=== PATIENT | female | born 1930 | race African-American/Black ===

== ENCOUNTER → 2016-03-28 | Outpatient (CLI) | payer OTHER ==
[~2016-03-28] MED LIST: AMLO-110 PO; AMOX875T PO; CEPH500C PO; CEPH500C2 PO; CFP2IV IV; CIPR1TAB11 PO; DRGTP50 TOP; FERR1TAB13 PO; FLUC100T4 PO; GLC5 PO; GLIP10TA3 PO; INSDGIPEN SC; INSUINJ4 SQ; LEVO-366 PO; LEVO1TAB33 PO; LEVO1TAB34 PO; LISI40TA PO; METO25TA56 PO; METO5TAB25 PO; PRAV20TA PO; PRVC/40 PO
[2016-03-28 14:23] LABS: ESTIMATED AVERAGE GLUCOSE 174 mg/dl; HA1C FLAG Normal (Normal)
== END | disposition home or self-care (01) ==
LOC: C.LABBC 11:14
PROVIDERS: ATTEND Internal Medicine
DX: N18.9 Chronic kidney disease, unspecified (principal); E11.22 Type 2 diabetes mellitus with diabetic chronic kidney disease

== ENCOUNTER → 2016-03-30 | Outpatient (CLI) | payer OTHER ==
[~2016-03-30] MED LIST changes: -CIPR1TAB11 PO; -DRGTP50 TOP
[2016-03-30 16:37] LABS: FERRITIN 112.8 ng/ml (8.0-388.0)
== END | disposition home or self-care (01) ==
LOC: C.LAB1850 14:43
PROVIDERS: ATTEND Internal Medicine
DX: D64.9 Anemia, unspecified (principal)

== ENCOUNTER → 2016-07-03 | Outpatient (CLI) | payer OTHER ==
[~2016-07-03] MED LIST changes: -AMOX875T PO; -CFP2IV IV; -FLUC100T4 PO; -LEVO1TAB34 PO
[2016-07-03 12:19] LABS: BASO % 0.2 %; BASO ABS # 0.02 K/uL (0-0.2); COMPLETE YES; EOS % 1.7 %; HEMATOCRIT 36.8 % (37-47); IG% 0.2 %; LYMPH % 11.6 %; LYMPH ABS # 1.04 K/uL (1.2-3.4); MEAN CELL VOLUME 87.4 fL (80-100); MEAN CORPUSCULAR HEMOGLOBIN 29.2 pg (25-34); MEAN CORPUSCULAR HGB CONC 33.4 g/dl (32-36); MEAN PLATELET VOLUME 10.9 fL (7.4-10.4); MONO % 5.9 %; NEUT % 80.4 %; PLATELET COUNT 217 K/uL (130-400); RED BLOOD COUNT 4.21 M/uL (4.2-5.4); WHITE BLOOD COUNT 8.96 K/uL (4.8-10.8)
[2016-07-03 12:32] LABS: BLOOD UREA NITROGEN 36 mg/dl (7-18); BUN/CREATININE RATIO 25.7 (10-20); CALCIUM 9.3 mg/dl (8.5-10.1); CARBON DIOXIDE 27 mmol/L (21-32); CHLORIDE 102 mmol/L (98-107); GLUCOSE 184 mg/dl (70-99); POTASSIUM 4.3 mmol/L (3.5-5.1); SODIUM 138 mmol/L (136-145)
[2016-07-03 13:27] LABS: ESTIMATED AVERAGE GLUCOSE 220 mg/dl; HA1C FLAG Normal (Normal)
--- NOTE | 2016-07-10 10:29 | CODING QUERY MEDICAL NECESSITY ---
CQSUPPORTING DIAGNOSIS NEEDED A supporting diagnosis is required for the test/procedure performed on this patient in order for us to be reimbursed by the patient's insurance. Please provide a supporting diagnosis for the following test/procedure listed below next to the test name along with your signature. *If there is no additional diagnosis for this patient that would support the following test/procedure please document that below next to the test/procedure. Test(s)/Procedure(s) that require a supporting diagnosis: DOS 07/03/16 GLYCATED HEMOGLOBIN ORDERED BY BONG KUMAR Provider Signature: Date: Thank you Taylor Lezama Health Information Management Once completed, please kindly fax back to [phone] For questions please call [phone]
== END | disposition home or self-care (01) ==
LOC: C.LAB1850 11:13
PROVIDERS: ATTEND Physician Assistant
DX: N18.9 Chronic kidney disease, unspecified (principal); R73.09 Other abnormal glucose; S81.801A Unspecified open wound, right lower leg, initial encounter; X58.XXXA Exposure to other specified factors, initial encounter; L97.919 Non-pressure chronic ulcer of unspecified part of right lower leg with unspecified severity; L03.90 Cellulitis, unspecified; B95.2 Enterococcus as the cause of diseases classified elsewhere; B37.9 Candidiasis, unspecified

== ENCOUNTER → 2016-10-02 | Outpatient (CLI) | payer OTHER ==
[2016-10-02 12:21] LABS: BASO % 0.3 %; BASO ABS # 0.02 K/uL (0-0.2); COMPLETE YES; EOS % 1.6 %; HEMATOCRIT 38.8 % (37-47); IG% 0.2 %; LYMPH ABS # 1.19 K/uL (1.2-3.4); MEAN CELL VOLUME 91.3 fL (80-100); MEAN CORPUSCULAR HEMOGLOBIN 30.6 pg (25-34); MEAN CORPUSCULAR HGB CONC 33.5 g/dl (32-36); MEAN PLATELET VOLUME 10.5 fL (7.4-10.4); MONO % 7.2 %; NEUT % 71.7 %; PLATELET COUNT 241 K/uL (130-400); RED BLOOD COUNT 4.25 M/uL (4.2-5.4); WHITE BLOOD COUNT 6.27 K/uL (4.8-10.8)
[2016-10-02 12:44] LABS: ESTIMATED AVERAGE GLUCOSE 157 mg/dl; HA1C FLAG Normal (Normal)
[2016-10-02 12:59] LABS: BLOOD UREA NITROGEN 42 mg/dl (7-18); CALCIUM 9.8 mg/dl (8.5-10.1); CARBON DIOXIDE 28 mmol/L (21-32); CHLORIDE 105 mmol/L (98-107); GLUCOSE 107 mg/dl (70-99); POTASSIUM 4.3 mmol/L (3.5-5.1); SODIUM 140 mmol/L (136-145)
[2016-10-02 13:10] LABS: CHOLESTEROL 244 mg/dl (0-200); CHOLESTEROL/HDL RATIO 2.2; HDL CHOLESTEROL 109 mg/dl; LDL CHOLESTEROL CALCULATED 123 mg/dl; TRIGLYCERIDES 62 mg/dl (0-150); VERY LOW DENSITY LIPOPROT CALC 12 mg/dl
== END | disposition home or self-care (01) ==
LOC: C.LAB1850 10:19
PROVIDERS: ATTEND Physician Assistant
DX: I12.9 Hypertensive chronic kidney disease with stage 1 through stage 4 chronic kidney disease, or unspecified chronic kidney disease (principal); N18.9 Chronic kidney disease, unspecified; E11.9 Type 2 diabetes mellitus without complications

== ENCOUNTER 2016-11-21 13:34 | Emergency (ER) | payer OTHER ==
[~2016-11-21 13:34] MED LIST changes: -CEPH500C PO; -CEPH500C2 PO; -GLIP10TA3 PO; -INSDGIPEN SC; -LEVO-366 PO; -LEVO1TAB33 PO; -PRVC/40 PO
[2016-11-21 13:44] VITALS: TEMP 36.7; Ht 157.5 cm
[2016-11-21] MEDS ORDERED: SODIUM CHLORIDE 0.9% 1000ML 500 ML IV STA (14:21)
--- NOTE | 2016-11-21 14:27 | EMERGENCY ROOM VISIT NOTE ---
History Report prepared by Pardeep: Henrique Hinojosa Under the Supervision of: Dr. Amarjit Horton M.D. First contact with patient: 14:15 Chief Complaint: HYPERGLYCEMIA Stated Complaint: KNUTSON, DIZZY, N, HIGH BLOOD SUGAR, CONSTIPATION Nursing Triage Summary: "My sugar went up." per pt. 365 at home per daughter. BSG in triage 218 Denies complaints of headache, dizziness. Pt states "my bowels haven't moved like they should." History of Present Illness The patient is an 86 year old female diabetic who presents to the Emergency Room with complaints of persistent hyperglycemia that started a few days ago. Per the patient's daughter, the patient's blood sugar was the highest this morning, at 365. In triage, the patient's blood sugar was 218. The patient denies any recent changes in diabetes medication, and takes Insulin and Glipizide daily. She also denies any changes in her diet recently. The patient adds that starting yesterday, she has had a decreased urinary frequency, and did not have to get up at all last night to urinate, which is very unusual for her. She denies any changes in the color of her urine. She notes that she has had a decreased appetite with constipation the past few days. The patient was started on Pravastatin 3 weeks ago. Per the patient's daughter, the patient has had a right leg ulcer for quite a while which has been improving, and goes to wound clinic for it. She was supposed to have an appointment there today, but came here instead. She denies any fevers, cough, or new chills. She is not on any antibiotics currently. Source of History: patient, family (daughter) Onset: A few days ago Position: other (global - hyperglycemia) Symptom Intensity: as high as 365 Timing: other (persistent) Associated Symptoms: + urinary symptoms (decreased urinary frequency, denies change in color), No fevers, No chills (any new), No cough Note: Associated symptoms: Decreased appetite. Constipation. Review of Systems See HPI for pertinent positives & negatives. A total of 10 systems reviewed and were otherwise negative. Past Medical & Surgical Medical Problems: (1) Acute on chronic renal failure (2) Cellulitis (3) Diabetes mellitus with hyperglycemia, with long-term current use of insulin (4) Wound of right leg Family History Family history omitted secondary to patient's advanced age. Social History Smoking Status: Never Smoker Drug Use: none Marital Status: Occupation Status: retired Current/Historical Medications Scheduled Amlodipine (Norvasc), 5 MG PO BID Glipizide (Glucotrol), 10 MG PO BID Insulin Glargine (Lantus Solostar), 15 SC HS Lisinopril (Zestril), 40 MG PO DAILY Metolazone (Zaroxolyn), 5 MG PO Q2D Metoprolol Tartrate (Lopressor) (Lopressor), 25 MG PO BID Pravastatin Sod (Pravastatin Sodium), 40 MG PO DAILY Allergies Coded Allergies: No Known Allergies (Unverified , 11/21/16) Physical Exam Vital Signs Date Time Temp Pulse Resp B/P (MAP) Pulse Ox O2 Delivery O2 Flow Rate FiO2 11/21/16 15:45 68 16 153/82 99 Room Air 11/21/16 13:44 36.7 60 18 161/79 95 Room Air Physical Exam GENERAL: Patient is in no acute distress. HEENT: No acute trauma, normocephalic atraumatic, mucous membranes moist, no nasal congestion, no scleral icterus. NECK: No stridor, no adenopathy, no meningismus, trachea is midline. LUNGS: Clear to auscultation bilaterally, no wheeze, no rhonchi, breath sounds equal. HEART: Without murmurs gallops or rubs, regular rate and rhythm. ABDOMEN: Soft, nontender, bowel sounds positive, no hernias, no peritonitis. EXTREMITIES: No cyanosis or edema, full range of motion of all the joints without pain or difficulty, no signs for acute trauma. There is a healing ulcer to the distal lateral right leg that has been bandaged. No surrounding cellulitis. NEUROLOGIC: Oriented x 3, no acute motor or sensory deficits, no focal weakness. SKIN: No rash, no jaundice, no diaphoresis. Medical Decision & Procedures ER Provider Diagnostic Interpretation: X-ray results as stated below per interpretation by me and the radiologist: CHEST ONE VIEW PORTABLE HISTORY: 86 years-old Female EVALUATE ALTERED MENTAL STATUS/WEAKNESS COMPARISON: Chest radiographs 11/05/2015 TECHNIQUE: Portable upright AP view of the chest FINDINGS: Cardiac silhouette is within normal limits. There is atherosclerosis of the aorta. There is no pneumothorax, pleural effusion or focal airspace consolidation. There is no overt pulmonary edema. The bones are mildly demineralized. Subcortical cystic changes and advanced degenerative changes are noted within the shoulders. IMPRESSION: No acute cardiopulmonary process. The above report was generated using voice recognition software. It may contain grammatical, syntax or spelling errors. Electronically signed by: Shree Villarreal M.D. 11/21/2016 2:53 PM Dictated Date/Time: 11/21/2016 2:52 PM Laboratory Results 11/21/16 14:35 Red Blood Count 4.47, Mean Corpuscular Volume 90.8, Mean Corpuscular Hemoglobin 30.4, Mean Corpuscular Hemoglobin Concent 33.5, Mean Platelet Volume 9.7, Neutrophils (%) (Auto) 80.1, Lymphocytes (%) (Auto) 13.0, Monocytes (%) (Auto) 6.0, Eosinophils (%) (Auto) 0.5, Basophils (%) (Auto) 0.3, Neutrophils # (Auto) 6.04, Lymphocytes # (Auto) 0.98, Monocytes # (Auto) 0.45, Eosinophils # (Auto) 0.04, Basophils # (Auto) 0.02 11/21/16 14:35 Test 11/21/16 13:47 11/21/16 14:35 11/21/16 16:00 Bedside Glucose 218 mg/dl (70-90) White Blood Count 7.54 K/uL (4.8-10.8) Red Blood Count 4.47 M/uL (4.2-5.4) Hemoglobin 13.6 g/dL (12.0-16.0) Hematocrit 40.6 % (37-47) Mean Corpuscular Volume 90.8 fL (80-100) Mean Corpuscular Hemoglobin 30.4 pg (25-34) Mean Corpuscular Hemoglobin Concent 33.5 g/dl (32-36) Platelet Count 267 K/uL (130-400) Mean Platelet Volume 9.7 fL (7.4-10.4) Neutrophils (%) (Auto) 80.1 % Lymphocytes (%) (Auto) 13.0 % Monocytes (%) (Auto) 6.0 % Eosinophils (%) (Auto) 0.5 % Basophils (%) (Auto) 0.3 % Neutrophils # (Auto) 6.04 K/uL (1.4-6.5) Lymphocytes # (Auto) 0.98 K/uL (1.2-3.4) Monocytes # (Auto) 0.45 K/uL (0.11-0.59) Eosinophils # (Auto) 0.04 K/uL (0-0.5) Basophils # (Auto) 0.02 K/uL (0-0.2) RDW Standard Deviation 42.8 fL (36.4-46.3) RDW Coefficient of Variation 12.7 % (11.5-14.5) Immature Granulocyte % (Auto) 0.1 % Immature Granulocyte # (Auto) 0.01 K/uL (0.00-0.02) Anion Gap 7.0 mmol/L (3-11) Estimated GFR () 33.5 Estimated GFR (Non- 28.9 BUN/Creatinine Ratio 23.6 (10-20) Calcium Level 10.1 mg/dl (8.5-10.1) Total Bilirubin 0.4 mg/dl (0.2-1) Aspartate Amino Transf (AST/SGOT) 15 U/L (15-37) Alanine Aminotransferase (ALT/SGPT) 16 U/L (12-78) Alkaline Phosphatase 106 U/L (45-117) Total Protein 8.2 gm/dl (6.4-8.2) Albumin 3.8 gm/dl (3.4-5.0) Globulin 4.4 gm/dl (2.5-4.0) Albumin/Globulin Ratio 0.9 (0.9-2) Urine Color YELLOW Urine Appearance CLEAR (CLEAR) Urine pH 5.0 (4.5-7.5) Urine Specific Sullivan 1.015 (1.000-1.030) Urine Protein NEG (NEG) Urine Glucose (UA) NEG (NEG) Urine Ketones NEG (NEG) Urine Occult Blood NEG (NEG) Urine Nitrite NEG (NEG) Urine Bilirubin NEG (NEG) Urine Urobilinogen NEG (NEG) Urine Leukocyte Esterase TRACE (NEG) Urine WBC (Auto) 1-5 /hpf (0-5) Urine RBC (Auto) 0-4 /hpf (0-4) Urine Hyaline Casts (Auto) 1-5 /lpf (0-5) Urine Epithelial Cells (Auto) 5-10 /lpf (0-5) Urine Bacteria (Auto) NEG (NEG) Laboratory results reviewed by me. Medications Administered Medications (Trade) Dose Ordered Sig/Rita Route Start Time Stop Time Status Last Admin Dose Admin Sodium Chloride 500 ml @ 999 mls/hr Q31M STAT IV 11/21/16 14:21 11/21/16 14:51 DC 11/21/16 14:44 999 MLS/HR Sodium Chloride 500 ml @ 999 mls/hr Q31M STAT IV 11/21/16 15:30 11/21/16 16:00 DC 11/21/16 15:44 999 MLS/HR ED Course 1420: The patient was evaluated in room C5. A complete history and physical exam was performed. 1421: Ordered NSS 500 ml @ 999 mls/hr IV. 1633: Reevaluated the patient and she is resting comfortably. Discussed results and discharge instructions: she verbalized understanding and agreement. The patient is ready for discharge. Medical Decision Differential diagnosis includes but is not limited to dehydration, poor diet, UTI, cellulitis, pneumonia, viral illness. There is no leukocytosis or concerning anemia. No significant electrolyte abnormality or kidney failure-creatinine is baseline, glucose only mildly elevated and consistent with her history of diabetes. Urinalysis does not show infection. Chest x-ray does not show pneumonia. On exam, the patient did not seem toxic, she was not febrile. She has an ulcer to her right lateral leg which is slowly healing. No overt cellulitis seen. A wound culture was done at the request of the family. Patient received IV saline for hydration. She has done well, I don't find any source for infection. The patient was given information on following a diabetic diet. She will be discharged to follow with the wound center and with her family doctor's office. If worsening, she can return. Medication Reconcilliation Current Medication List: was personally reviewed by me Blood Pressure Screening Patient's blood pressure: Elevated blood pressure Blood pressure disposition: Elevated BP felt to be situational Impression Primary Impression: Hyperglycemia Scribe Attestation The scribe's documentation has been prepared under my direction and personally reviewed by me in its entirety. I confirm that the note above accurately reflects all work, treatment, procedures, and medical decision making performed by me. Departure Information Dispostion Home / Self-Care Referrals No Doctor, Assigned (PCP) Leal, Brant H.,M.D. Forms HOME CARE DOCUMENTATION FORM, IMPORTANT VISIT INFORMATION Patient Instructions My [facility] Additional Instructions stay well hydrated follow the information about diabetes and proper diets see the wound center when able see heidy abbott this week for a recheck of the sugar return for fever, worsening redness, or worsening symptoms you can call here in 3 days for the wound culture results---[phone]
[2016-11-21] MEDS ORDERED: PRVC/40 PO (14:35)
[2016-11-21] MEDS ORDERED: GLIP10TA3 PO (14:38)
[2016-11-21] MEDS ORDERED: INSDGIPEN SC (14:39)
[2016-11-21 14:51] LABS: BASO % 0.3 %; BASO ABS # 0.02 K/uL (0-0.2); COMPLETE YES; EOS % 0.5 %; HEMATOCRIT 40.6 % (37-47); IG% 0.1 %; LYMPH ABS # 0.98 K/uL (1.2-3.4); MEAN CELL VOLUME 90.8 fL (80-100); MEAN CORPUSCULAR HEMOGLOBIN 30.4 pg (25-34); MEAN CORPUSCULAR HGB CONC 33.5 g/dl (32-36); MEAN PLATELET VOLUME 9.7 fL (7.4-10.4); NEUT % 80.1 %; PLATELET COUNT 267 K/uL (130-400); RED BLOOD COUNT 4.47 M/uL (4.2-5.4); WHITE BLOOD COUNT 7.54 K/uL (4.8-10.8)
--- NOTE | 2016-11-21 14:54 | DIAGNOSTIC IMAGING REPORT ---
CHEST ONE VIEW PORTABLE HISTORY: 86 years-old Female EVALUATE ALTERED MENTAL STATUS/WEAKNESS COMPARISON: Chest radiographs 11/05/2015 TECHNIQUE: Portable upright AP view of the chest FINDINGS: Cardiac silhouette is within normal limits. There is atherosclerosis of the aorta. There is no pneumothorax, pleural effusion or focal airspace consolidation. There is no overt pulmonary edema. The bones are mildly demineralized. Subcortical cystic changes and advanced degenerative changes are noted within the shoulders. IMPRESSION: No acute cardiopulmonary process. The above report was generated using voice recognition software. It may contain grammatical, syntax or spelling errors. Electronically signed by: Shree Villarreal M.D. 11/21/2016 2:53 PM Dictated Date/Time: 11/21/2016 2:52 PM
[2016-11-21 15:15] LABS: ALT/SGPT 16 U/L (12-78); BLOOD UREA NITROGEN 38 mg/dl (7-18); BUN/CREATININE RATIO 23.6 (10-20); CALCIUM 10.1 mg/dl (8.5-10.1); CARBON DIOXIDE 29 mmol/L (21-32); CHLORIDE 99 mmol/L (98-107); GLUCOSE 242 mg/dl (70-99); POTASSIUM 4.3 mmol/L (3.5-5.1); SODIUM 135 mmol/L (136-145)
[2016-11-21 15:18] LABS: ALB/GLOB RATIO 0.9 (0.9-2); ALKALINE PHOSPHATASE 106 U/L (45-117); AST/SGOT 15 U/L (15-37)
[2016-11-21] MEDS ORDERED: SODIUM CHLORIDE 0.9% 500ML 500 ML IV STA (15:30)
[2016-11-21 16:05] LABS: MANUAL MICROSCOPIC REQUIRED? NO; REVIEW REQ? NO; URINE APPEARANCE CLEAR (CLEAR); URINE BILIRUBIN NEG (NEG); URINE COLOR YELLOW; URINE NITRITE NEG (NEG); URINE SPECIFIC GRAVITY 1.015 (1.000-1.030); UROBILINOGEN NEG (NEG); ZZUR CULT IF INDIC CLEAN CATCH NO
[2016-11-21 17:10] VITALS: BP 156/82; PULSE 73; O2SAT 98
[2016-11-27] MEDS ORDERED: CEPH500C2 PO (08:58)
[2016-11-27] MEDS ORDERED: LEVO1TAB33 PO (08:58)
[2016-12-06] MEDS ORDERED: LEVO-366 PO (07:49)
[2016-12-06] MEDS ORDERED: CEPH500C PO (07:49)
== END 2016-11-21 17:10 | disposition home or self-care (01) ==
LOC: C.EDB 13:37 → C.EDC 17:10
DX: E11.65 Type 2 diabetes mellitus with hyperglycemia (principal); N18.9 Chronic kidney disease, unspecified; Z79.4 Long term (current) use of insulin; Z79.899 Other long term (current) drug therapy

== ENCOUNTER → 2017-05-17 | Outpatient (CLI) | payer OTHER ==
[~2017-05-17] MED LIST changes: +CIPR1TAB11 PO; -FERR1TAB13 PO; +FLUC100T4 PO; -GLC5 PO; +GLIP10TA3 PO; +INSDGIPEN SC; -INSUINJ4 SQ; -PRAV20TA PO; +PRVC/40 PO
[2017-05-17 17:43] LABS: BASO % 0.4 %; BASO ABS # 0.03 K/uL (0-0.2); EOS % 2.8 %; EOS ABS # 0.19 K/uL (0-0.5); HEMATOCRIT 35.9 % (37-47); HEMOGLOBIN 12.3 g/dL (12.0-16.0); IG# 0.02 K/uL (0.00-0.02); LYMPH % 18.5 %; LYMPH ABS # 1.25 K/uL (1.2-3.4); MEAN CELL VOLUME 89.3 fL (80-100); MEAN CORPUSCULAR HEMOGLOBIN 30.6 pg (25-34); MEAN CORPUSCULAR HGB CONC 34.3 g/dl (32-36); MEAN PLATELET VOLUME 9.8 fL (7.4-10.4); MONO % 8.3 %; MONO ABS # 0.56 K/uL (0.11-0.59); NEUT % 69.7 %; NEUT ABS # 4.71 K/uL (1.4-6.5); PLATELET COUNT 222 K/uL (130-400); RED CELL DISTRIBUTION WIDTH CV 13.2 % (11.5-14.5); RED CELL DISTRIBUTION WIDTH SD 43.1 fL (36.4-46.3); WHITE BLOOD COUNT 6.76 K/uL (4.8-10.8)
[2017-05-17 18:08] LABS: BLOOD UREA NITROGEN 36 mg/dl (7-18); CARBON DIOXIDE 27 mmol/L (21-32); CREATININE 1.37 mg/dl (0.60-1.20); GLUCOSE 187 mg/dl (70-99); SODIUM 139 mmol/L (136-145)
[2017-05-18 07:17] LABS: HEMOGLOBIN A1C 6.8 % (4.5-5.6)
== END | disposition home or self-care (01) ==
LOC: C.LAB1850 17:16
PROVIDERS: ATTEND Internal Medicine
DX: M75.00 Adhesive capsulitis of unspecified shoulder (principal); I12.9 Hypertensive chronic kidney disease with stage 1 through stage 4 chronic kidney disease, or unspecified chronic kidney disease; N18.9 Chronic kidney disease, unspecified; E11.22 Type 2 diabetes mellitus with diabetic chronic kidney disease

== ENCOUNTER 2018-08-05 12:07 | Inpatient (IN) ==
[2018-08-05 16:29] LABS: Alanine Aminotransferase 14 U/L (12-78); Albumin Level 3.2 gm/dl (3.4-5.0); Aspartate Aminotransferase 13 U/L (15-37); BUN Creatinine Ratio 30.5 (10-20); Blood Urea Nitrogen 45 mg/dl (7-18); Calcium 9.7 mg/dl (8.5-10.1); Carbon Dioxide 24 mmol/L (21-32); Chloride 109 mmol/L (98-107); Est GFR (African American) 36.9; Est GFR (Non-African American) 31.8; Glucose 79 mg/dl (70-99); Potassium 4.4 mmol/L (3.5-5.1); Sodium 141 mmol/L (136-145)
[2018-08-05] MEDS ORDERED: IMIPENEM/CILASTATIN CONSULT ACTIVE PRN (16:31)
[2018-08-05 16:32] LABS: Albumin Globulin Ratio 0.8 (0.9-2); Alkaline Phosphatase 94 U/L (45-117); Bilirubin,Total 0.4 mg/dl (0.2-1); Globulin 4.2 gm/dl (2.5-4.0); Total Protein 7.4 gm/dl (6.4-8.2)
[2018-08-05] MEDS ORDERED: PATIENT'S HEIGHT AND/OR WEIGHT NEEDED SCH (16:45)
[2018-08-05] MEDS ORDERED: ACETAMINOPHEN 325 MG TAB PO PRN (16:55)
[2018-08-05] MEDS ORDERED: IMIPENEM/CILASTATIN SODIUM 500 MG in DEXTROSE 5% 100 ML IV ONE (17:00)
[2018-08-05] MEDS ORDERED: CONSULT PHARMACY STA (17:06)
--- NOTE | 2018-08-05 17:43 | XRay Report ---
XR foot RT min 3V routine CLINICAL HISTORY: 88 years-old Female presenting with r/o abscess vs cellulitis right great toe. TECHNIQUE: Frontal, oblique, and lateral views of the right foot were obtained. COMPARISON: Plain radiographs and MR of the right foot from 06/25/2018 and 07/02/2018, respectively. FINDINGS: Diffuse osteopenia. Irregularity of the medial aspect of the first toe at the level of the tuft sugge stive of an ulceration. Trace subjacent lucency of the medial cortex of the base of the distal phalan x of the first toe though this is only minimally progressed from the prior exam. The interphalangeal joint of the first toe appears preserved. No acute fracture or malalignment. No advanced degenerative change. Soft tissue swelling along the medial aspect of the first toe. Atherosclerosis. IMPRESSION: Trace osseous or erosion subjacent to a suspected ulceration along the medial aspect of the first toe at the level of the base of the distal phalanx. Though this is minimally progressed since the prior exam, this does raise concern for early osteomyelitis. No rick evidence of septic arthritis of the i nterphalangeal joint. Electronically signed by: Claudio Wallace M.D. 08/05/2018 5:42 PM
[2018-08-05 17:53] LABS: Prothrombin Time 10.6 Seconds (9.0-12.0)
[2018-08-05 18:15] LABS: Hematocrit (blood only) 33.4 % (37-47); Hemoglobin 11.7 g/dL (12.0-16.0); Mean Corpuscular Volume 88.8 fL (80-100); Mean Platelet Volume 10.2 fL (7.4-10.4); Platelet Count 285 K/uL (130-400); RDW Coefficient of Variation 13.2 % (11.5-14.5); RDW Standard Deviation 43.2 fL (36.4-46.3); Red Blood Count 3.76 M/uL (4.2-5.4); White Blood Count 8.95 K/uL (4.8-10.8)
[2018-08-05] MEDS ORDERED: Nursing to Pharmacy Communication ONE (18:20)
--- NOTE | 2018-08-05 18:28 | History & Physical Report ---
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 Elliott arrives here from the wound clinic due to worsening diabetic foot wound. She has been receiving ongoing treatment and had a dose of Dalvance over the weekend. Imaging last week showed osteoitis. Patient denies aches, chills, or fevers. She has no other complaints other than foot pain. Pmhx: hypertension, CHF, DMII, Social: non drinker, never smoker, Family hx: father was diabetic Primary Care Provider: Brant Leal MD Allergies Allergy/AdvReac Type Severity Reaction Status Date / Time No Known Allergies Allergy Verified 08/05/18 13:14 Home Medications Home Medications Medication Instructions Recorded Confirmed Type amlodipine 5 mg PO BID 08/05/18 08/05/18 History glipizide 10 mg PO BID 08/05/18 08/05/18 History insulin glargine [Lantus Solostar 15 units SUBCUT PM 08/05/18 08/05/18 History U-100 Insulin] lisinopril 40 mg PO DAILY 08/05/18 08/05/18 History metolazone 5 mg PO Q OTHER DAY 08/05/18 08/05/18 History metoprolol tartrate 25 mg PO BID 08/05/18 08/05/18 History pravastatin 40 mg PO DAILY 08/05/18 08/05/18 History Past Med/Surg History Social History Preferred Language: Spanish Communication Ability: Effective Visual Impairment: No Limitations Hearing Ability: Normal Subscription Crew Leader Required: No Beliefs That Will Affect Care: Confucianist Confucianist Beliefs: Baptist marital status: / Current Living Situation: Alone current occupational status: retired Feels Safe at Home: Yes Safety Concerns: Feels Safe At This Time Smoking Status: Never smoker Hx Alcohol Use: No Hx Substance Use: No Review of Systems Review of Systems: All systems reviewed & are unremarkable except as noted in HPI & below Physical Exam Physical Exam: General: no distress Eyes: normal inspection, PERLL Respiratory: chest non tender, clear to auscultation, normal breath sounds, no respiratory distress, no accessory muscle use Cardiac: regular rate and rhythm, no rub or gallop, no murmur, no edema, no jvd GI/: active bowel sounds, no abd pain or tenderness, soft, non distended Extremities: normal range of motion, normal strength, non tender Neuro/Psych: alert and oriented x 3, normal mood and affect Skin: normal color, dry, right toe boggy and dusky, right medial ulceration with eschar and slough, right gomez with area of slough/erythema (patient reports this is improvement). Results & Data Vital Signs (Past 12 Hours) Vital Signs Temp Pulse Resp BP Pulse Ox 08/05/18 16:10 149/83 H 08/05/18 15:13 36.6 C 80 18 174/76 H 98 08/05/18 13:35 36.4 C L 81 18 140/81 96 (1) 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
[2018-08-05] MEDS ORDERED: DEXTROSE 50% 50 ML SYRINGE IV PRN (18:30)
[2018-08-05] MEDS ORDERED: GLUCOSE 40% GEL 15 GM TUBE PO PRN (18:30)
[2018-08-05] MEDS ORDERED: GLUCOSE 10 TABS/TUBE PO PRN (18:30)
[2018-08-05] MEDS ORDERED: GLUCAGON FOR INJ 1 MG VIAL IM PRN (18:30)
[2018-08-05] MEDS: HYDROCODONE/ACETAMOPHEN 5/325MG TAB PO PRN (19:17)
[2018-08-05] MEDS: INSULIN ASPART 100 UNITS/ML 3 ML PEN SC SCH ×2 (19:26→21:24)
[2018-08-05] MEDS ORDERED: METOPROLOL TARTRATE 25 MG TAB PO SCH (21:00)
[2018-08-05] MEDS ORDERED: INSULIN GLARGINE SOLOSTAR 100 UNITS/ML 3 ML PEN SQ SCH (21:00)
[2018-08-05] MEDS: AMLODIPINE BESYLATE 5 MG TAB PO SCH (21:20)
[2018-08-05] MEDS: METOPROLOL TARTRATE 25 MG TAB PO SCH (21:20)
[2018-08-05] MEDS: HEPARIN SOD 5,000 UNIT/0.5 ML VIAL SQ SCH (21:23)
[2018-08-05] MEDS ORDERED: LACTATED RINGER'S 250 ML IV ONE (23:35)
--- NOTE | 2018-08-06 00:01 | Progress Note ---
Date of Service August 05, 2018 Received a page from the patient's nurse that her blood pressure was 75/45 and that she is asymptomatic. On brief chart review, patient was admitted for right foot toe ulcer. Hypertension and is on amlodipine and lisinopril, both doses given about 90 minutes ago.. Earlier blood pressures in the day/evening were hypertensive. Saw patient at bedside. She is awake, alert, very pleasantly conversational, and says that she is in no distress whatsoever. She does mention she has not had much to drink today. She also says she has no known history of heart failure, though a relative/friend at her bedside says she has had heart evaluations in the past. Exam: Afebrile, heart rate 73. Conversing easily. Clear lungs to auscultation. No peripheral edema. On recheck without any treatment, blood pressure went up to systolic mid 80's. Plan: - Will bolus with lactated Ringer's 250 mL. - Encouraged p.o. fluid intake. - Nursing to continue to monitor overnight. Shree Lanza, PGY2 Overnight call Results & Data Vital Signs (Past 12 Hours) Vital Signs Temp Pulse Resp BP BP Pulse Ox 08/05/18 23:19 37 C 73 16 75/45 L 96 08/05/18 16:10 149/83 H 08/05/18 15:13 36.6 C 80 18 174/76 H 98 08/05/18 13:35 36.4 C L 81 18 140/81 96
[2018-08-06] MEDS: IMIPENEM/CILASTATIN SODIUM 200 MG in DEXTROSE 5% 100 ML IV SCH ×2 (00:21→05:24)
[2018-08-06 06:03] LABS: Estimated Average Glucose 160 mg/dl; Hemoglobin A1C 7.2 % (4.5-5.6)
[2018-08-06 07:31] LABS: Hematocrit (blood only) 31.6 % (37-47); Mean Corpuscular Hgb Conc 34.8 g/dL (32-36); Mean Corpuscular Volume 88.8 fL (80-100); Mean Platelet Volume 9.4 fL (7.4-10.4); Platelet Count 277 K/uL (130-400); RDW Standard Deviation 42.3 fL (36.4-46.3); Red Blood Count 3.56 M/uL (4.2-5.4); White Blood Count 7.47 K/uL (4.8-10.8)
[2018-08-06] MEDS: CARBOHYDRATES FOR HYPOGLYCEMIA PO PRN (08:09)
[2018-08-06] MEDS: PRAVASTATIN SOD 40 MG TAB PO SCH (08:46)
[2018-08-06] MEDS: HEPARIN SOD 5,000 UNIT/0.5 ML VIAL SQ SCH ×2 (08:48→21:33)
[2018-08-06] MEDS: INSULIN ASPART 100 UNITS/ML 3 ML PEN SC SCH ×4 (08:49→21:32)
[2018-08-06] MEDS ORDERED: PRAVASTATIN SOD 40 MG TAB PO SCH (09:00)
[2018-08-06] MEDS ORDERED: metOLazone 5 MG TABLET PO SCH (09:00)
[2018-08-06] MEDS ORDERED: LISINOPRIL 40 MG TAB PO SCH (09:00)
[2018-08-06] MEDS ORDERED: AMLODIPINE BESYLATE 5 MG TAB PO SCH (09:00)
[2018-08-06] MEDS: AMLODIPINE BESYLATE 5 MG TAB PO SCH ×2 (09:12→21:29)
[2018-08-06] MEDS: LISINOPRIL 40 MG TAB PO SCH (09:12)
[2018-08-06] MEDS: METOPROLOL TARTRATE 25 MG TAB PO SCH ×2 (09:12→21:29)
--- NOTE | 2018-08-06 10:14 | Cardiology Consultation ---
Date of Consultation August 06, 2018 Assessment & Plan (1) Chronic ulcer of great toe of right foot: 2. Peripheral arterial disease 3. Type 2 DM 4. CKD Patient has a history of complex peripheral arterial disease and recurrent lower extremity ulcerations. Currently admitted with a worsening wound of her left great toe with associated infection and possible osteomyelitis. Previous lower extremity angiogram demonstrated bilateral SFA occlusion, distal runoff unclear. Recommend right lower extremity arterial duplex for further assessment. Supervising Physician Co-Signing Physician Notes Patient seen and examined. Agree with assessment and plan as outlined by physician printer assistant Nadia Richard. We previously saw patient at wound clinic for her persistent left great toe ulceration in the setting of severe PAD. She was admitted yesterday in the setting of worsening cellulitis. MRI today suggestive of osteomyelitis. Foot warm, capillary refill sluggish, DP/PT pulses nonpalpable. Minimal surrounding erythema and no drainage. LE arterial duplex reviewed. 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 Proximal SFA appears occluded potentially extending back to ostium. SFA reconstitutes in mid/distal SFA. 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 SAMUEL with severe disease but patent to foot with patent DPA. Appears to have complex SFA disease with single vessel runoff. Recommend angiogram at some point to further assess anatomy and revascularization options. Timing of angiogram pending ortho plans. History of Present Illness Attending Physician: Davey Arellano MD History of Present Illness Mrs. Elliott is an 88-year-old female with a medical history significant for ch ronic kidney disease, hypertension, dyslipidemia, type 2 diabetes mellitus, peripheral arterial disease and right lower extremity ulcerations. Patient is well known to me from the outpatient setting. She was recently seen at the wound clinic in the setting of peripheral arterial disease and right lower extremity ulcerations. She has a history of recurrent ulcerations of both lower extremities. In 2016 Dr. Wilson performed angiogram which showed severe disease bilaterally including right SFA 100% occlusion and left SFA long severe disease extending into the popliteal artery and poor outflow. No intervention was performed at that time. She currently has multiple ulcerations of her right lower extremity including a large ulceration of her right great toe which has been slow to heal. We felt disease may not be amenable to endovascular intervention and potentially high risk given co-morbidities. Recommended further assessment of distal runoff with LE arterial duplex and TBI which have not yet been performed. She is currently being treated for an infection of her right great toe wound. On 08/01 she was seen at the wound clinic with worsening of her wound and pain. She was referred to [facility] ED where she was initiated on IV antibiotics with Cherri per Dr. Gonsales. Yesterday she was seen at the wound clinic with evidence of worsening infection and was referred to [facility] for admission. Patient reports the pain in her toe started about one week ago. Typically no pain in her foot. No claudication symptoms. She had worsening erythema and edema of the foot over the past several days. Daughter feels redness improved today compared to yesterday. No fever, chills or sweats. No chest pain or shortness of breath. No abnormal bleeding. MRI of foot pending. Allergies Allergy/AdvReac Type Severity Reaction Status Date / Time No Known Allergies Allergy Verified 08/05/18 13:14 Home Medications Home Medications Medication Instructions Recorded Confirmed Type amlodipine 5 mg PO BID 08/05/18 08/05/18 History glipizide 10 mg PO BID 08/05/18 08/05/18 History insulin glargine [Lantus Solostar 15 units SUBCUT PM 08/05/18 08/05/18 History U-100 Insulin] lisinopril 40 mg PO DAILY 08/05/18 08/05/18 History metolazone 5 mg PO Q OTHER DAY 08/05/18 08/05/18 History metoprolol tartrate 25 mg PO BID 08/05/18 08/05/18 History pravastatin 40 mg PO DAILY 08/05/18 08/05/18 History Patient History Medical History Cellulitis (Chronic) Diabetes (Chronic) Renal failure (Chronic) S/P tubal ligation (Chronic) Surgical History S/P cataract extraction (Acute) Family History Other Family history non-contributory Social History Preferred Language: Filipino Communication Ability: Effective Visual Impairment: No Limitations Hearing Ability: Normal Restaurant Shift Leader Required: No Beliefs That Will Affect Care: Orthodoxy Orthodoxy Beliefs: Moravian marital status: / Current Living Situation: Alone current occupational status: retired Feels Safe at Home: Yes Safety Concerns: Feels Safe At This Time Smoking Status: Never smoker Hx Alcohol Use: No Hx Substance Use: No Review of Systems Review of Systems: All systems reviewed & are unremarkable except as noted in HPI & below Physical Exam Physical Exam: General: No acute distress, comfortable. HEENT: Head is normal. PERRLA. EOMI. Sclerae anicteric. Ears, nose and throat unremarkable. Mucous membranes moist. Neck: Normal carotid upstrokes, no bruits. No appreciable JVD. Lungs: Clear to auscultation bilaterally without rales, rhonchi or wheezes. Cardiac: Regular rate and rhythm. S1-S2 normal. No appreciable murmur, gallop or rub. Abdomen: Soft and nontender. Bowel sounds normal. No mass or organomegaly. No abdominal bruit. Extremities/vascular: --Well perfused. No peripheral edema. --Radial pulses 2+ bilaterally. DP/PT pulses nonpalpable on right. DP pulse diminished on left. --Ulceration of right medial great toe with eschar. No drainage. There is per iwound inflammation with erythema extending to distal foot. Radial, DP and PT pulses 2+ bilaterally Results & Data Vital Signs (Past 12 Hours) Vital Signs Temp Pulse Pulse Pulse Pulse Resp BP 08/06/18 08:00 36.8 C 67 16 08/06/18 06:50 36.6 C 62 20 08/06/18 04:00 36.8 C 55 L 16 105/59 L 08/06/18 00:21 63 73 85/49 L 08/05/18 23:19 37 C 73 16 BP Pulse Ox 08/06/18 08:00 118/68 95 08/06/18 06:50 101/46 L 96 08/06/18 04:00 97 08/06/18 00:21 93/50 L 08/05/18 23:19 75/45 L 96 Laboratory Results Laboratory Results - last 24 hr 08/05/18 08/05/18 08/05/18 15:59 17:03 17:03 WBC 8.95 RBC 3.76 L Hgb 11.7 L Hct 33.4 L MCV 88.8 MCH 31.1 MCHC 35.0 RDW Std Deviation 43.2 RDW Coeff of Tommy 13.2 Plt Count 285 MPV 10.2 PT INR Sodium 141 Potassium 4.4 Chloride 109 H Carbon Dioxide 24 Anion Gap 8.0 BUN 45 H Creatinine 1.46 H Est Cr Clr Drug Dosing Not Reportable Est GFR ( Amer) 36.9 Est GFR (Non-Af Amer) 31.8 BUN/Creatinine Ratio 30.5 H Glucose 79 POC Glucose Estimat Average Glucose 160 Hemoglobin A1c 7.2 H Calcium 9.7 Total Bilirubin 0.4 AST 13 L ALT 14 Alkaline Phosphatase 94 Total Protein 7.4 Albumin 3.2 L Globulin 4.2 H Albumin/Globulin Ratio 0.8 L 08/05/18 08/05/18 08/05/18 17:11 17:14 20:52 WBC RBC Hgb Hct MCV MCH MCHC RDW Std Deviation RDW Coeff of Tommy Plt Count MPV PT 10.6 INR 1.0 Sodium Potassium Chloride Carbon Dioxide Anion Gap BUN Creatinine Est Cr Clr Drug Dosing Est GFR ( Amer) Est GFR (Non-Af Amer) BUN/Creatinine Ratio Glucose POC Glucose 104 H 158 H Estimat Average Glucose Hemoglobin A1c Calcium Total Bilirubin AST ALT Alkaline Phosphatase Total Protein Albumin Globulin Albumin/Globulin Ratio 08/06/18 08/06/18 08/06/18 07:11 08:04 08:24 WBC 7.47 RBC 3.56 L Hgb 11.0 L Hct 31.6 L MCV 88.8 MCH 30.9 MCHC 34.8 RDW Std Deviation 42.3 RDW Coeff of Tommy 13.0 Plt Count 277 MPV 9.4 PT INR Sodium Potassium Chloride Carbon Dioxide Anion Gap BUN Creatinine Est Cr Clr Drug Dosing Est GFR ( Amer) Est GFR (Non-Af Amer) BUN/Creatinine Ratio Glucose POC Glucose 64 L* 72 Estimat Average Glucose Hemoglobin A1c Calcium Total Bilirubin AST ALT Alkaline Phosphatase Total Protein Albumin Globulin Albumin/Globulin Ratio (1) Chronic ulcer of great toe of right foot Non-pressure ulcer stage: with fat layer exposed Qualified Code(s): L97.512 - Non-pressure chronic ulcer of other part of right foot with fat layer exposed
--- NOTE | 2018-08-06 11:02 | Magnetic Resonance Report ---
MR foot RT w/o con CLINICAL HISTORY: 88 years-old Female presenting with r/o osteo big toe. TECHNIQUE: Multisequence, multiplanar MR imaging of the right foot was performed without the use of i ntravenous contrast. IV contrast: None. COMPARISON: Plain radiograph from 08/05/2018 and MR from 07/02/2018. FINDINGS: Localizer images: Unremarkable. Motion artifact on several sequences degrades image quality and thus negatively affects a diagnostic sensitivity. The examination remains of sufficient quality for interpretation. T2 hyperintense, T1 hypointense abnormal signal within the distal phalanx of the first toe. This has significantly increased from prior exam. There is no significant abnormal fluid within the interphala ngeal joint. Only minimal heterogeneous abnormal signal is noted within the head of the proximal phal anx on both T2 and T1-weighted imaging. No other sites of abnormal bone marrow signal are appreciated . Overlying ulceration along the medial aspect of the first toe at the level of the interphalangeal chaim nt. Remainder of the soft tissues are within normal limits. Diffuse fatty atrophy of musculature sugg ested. IMPRESSION: 1. Findings highly suspicious for osteomyelitis of the distal phalanx of the first toe significantly progressed from prior exam. No rick evidence of septic arthritis of the interphalangeal joint of th e first toe at this time, although heterogeneous signal intensity of the head of the proximal phalanx could raise concern for early osteomyelitis or alternatively sterile reactive change. 2. Soft tissue ulceration along the medial aspect of the first toe. The report will be called/faxed according to standard departmental protocol. Electronically signed by: Claudio Wallace M.D. 08/06/2018 11:00 AM
--- NOTE | 2018-08-06 11:16 | Infectious Disease Consult ---
Date of Consultation August 06, 2018 Assessment & Plan (1) Cellulitis of foot: Patient with cellulitis of the right foot in the setting of severe peripheral arterial disease. Patient to be treated with IV Zosyn which should cover previously isolated methicillin sensitive staph aureus. Would obtain vascular studies and consider vascular surgery consult. Will follow. History of Present Illness Reason for Consultation: Right foot cellulitis Attending Physician: Davey Arellano MD History of Present Illness 88-year-old female well-known to me from infectious disease follow-up at the [facility] center, with history of type 2 diabetes mellitus, stage III chronic kidney disease, peripheral arterial disease, who has been followed for nonhealing right great toe ulceration. She has been treated with oral antibiotics, imaging studies have shown evidence of osteomyelitis, and patient was subsequently referred for treatment with IV dalbavancin. She received dose in the emergency room, but pain and redness and swelling of the foot has increased and patient has now been admitted for further management. He was started empirically on IV imipenem. Previous cultures were positive for methicillin sensitive staph aureus. Repeat MRI scan is pending. Patient has not had any significant fever or chills. Allergies Allergy/AdvReac Type Severity Reaction Status Date / Time No Known Allergies Allergy Verified 08/05/18 13:14 Home Medications Home Medications Medication Instructions Recorded Confirmed Type amlodipine 5 mg PO BID 08/05/18 08/05/18 History glipizide 10 mg PO BID 08/05/18 08/05/18 History insulin glargine [Lantus Solostar 15 units SUBCUT PM 08/05/18 08/05/18 History U-100 Insulin] lisinopril 40 mg PO DAILY 08/05/18 08/05/18 History metolazone 5 mg PO Q OTHER DAY 08/05/18 08/05/18 History metoprolol tartrate 25 mg PO BID 08/05/18 08/05/18 History pravastatin 40 mg PO DAILY 08/05/18 08/05/18 History Patient History Medical History Cellulitis (Chronic) Diabetes (Chronic) Renal failure (Chronic) S/P tubal ligation (Chronic) Surgical History S/P cataract extraction (Acute) Family History Other Family history non-contributory Social History Preferred Language: Bahamian Communication Ability: Effective Visual Impairment: No Limitations Hearing Ability: Normal Game 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 Required: No Beliefs That Will Affect Care: Mosque Mosque Beliefs: Worship marital status: / Current Living Situation: Alone current occupational status: retired Feels Safe at Home: Yes Safety Concerns: Feels Safe At This Time Smoking Status: Never smoker Hx Alcohol Use: No Hx Substance Use: No Review of Systems Review of Systems: All systems reviewed & are unremarkable except as noted in HPI & below Physical Exam Constitutional: WD/WN, vitals as above comfortable; no acute distress Eyes: PERRL, conjunctivae normal, anicteric sclerae ENMT: external ear and nose normal, oropharynx normal Neck: trachea midline, no thyromegaly neck nontender Respiratory: normal respiratory effort, lungs clear to auscultation normal percussion; does not use accessory muscles Cardiovascular: Rate/Rhythm: regular rate and regular rhythm Heart Sounds: normal S1 and normal S2; no gallop, no murmur and no cardiac rub Vessels: no JVD Gastrointestinal (Abdomen): normal bowel sounds, soft, nontender, no hepatosplenomegaly Musculoskeletal: no cyanosis or clubbing, extremities motor strength 5/5 Spine: thoracic spine normal to inspection and lumbar spine normal to inspection; no cervical spinal tenderness Skin: no rashes, warm and dry normal turgor, + wound (Right great toe with surrounding erythema and induration) and + erythema (Right foot) Neurologic: patellar DTR's 2+ bilat, sensation intact no focal motor deficits Psychiatric: A+Ox3, euthymic affect Orientation: cooperative Lymphatic: no cervical or axillary lymphadenopathy no inguinal lymphadenopathy Results & Data Vital Signs (Past 12 Hours) Vital Signs Temp Pulse Pulse Pulse Pulse Resp BP 08/06/18 08:00 36.8 C 67 16 08/06/18 06:50 36.6 C 62 20 08/06/18 04:00 36.8 C 55 L 16 105/59 L 08/06/18 00:21 63 73 85/49 L 08/05/18 23:19 37 C 73 16 BP Pulse Ox 05/15/19 08:00 118/68 95 08/06/18 06:50 101/46 L 96 08/06/18 04:00 97 08/06/18 00:21 93/50 L 08/05/18 23:19 75/45 L 96 Laboratory Results Short CBC 08/05/18 08/06/18 Range/Units 17:03 07:11 WBC 8.95 7.47 (4.8-10.8) K/uL Hgb 11.7 L 11.0 L (12.0-16.0) g/dL Hct 33.4 L 31.6 L (37-47) % Plt Count 285 277 (130-400) K/uL [facility] 08/05/18 15:59 Sodium 141 Potassium 4.4 Chloride 109 H Carbon Dioxide 24 BUN 45 H Creatinine 1.46 H Glucose 79 Calcium 9.7 Liver Function 08/05/18 Range/Units 15:59 Total Bilirubin 0.4 (0.2-1) mg/dl AST 13 L (15-37) U/L ALT 14 (12-78) U/L Alkaline Phosphatase 94 (45-117) U/L Albumin 3.2 L (3.4-5.0) gm/dl Diagnostic Findings Short CBC 08/05/18 08/06/18 Range/Units 17:03 07:11 WBC 8.95 7.47 (4.8-10.8) K/uL Hgb 11.7 L 11.0 L (12.0-16.0) g/dL Hct 33.4 L 31.6 L (37-47) % Plt Count 285 277 (130-400) K/uL [facility] 08/05/18 15:59 Sodium 141 Potassium 4.4 Chloride 109 H Carbon Dioxide 24 BUN 45 H Creatinine 1.46 H Glucose 79 Calcium 9.7 MR foot RT w/o con CLINICAL HISTORY: 88 years-old Female presenting with r/o osteo big toe. TECHNIQUE: Multisequence, multiplanar MR imaging of the right foot was performed without the use of intravenous contrast. IV contrast: None. COMPARISON: Plain radiograph from 08/05/2018 and MR from 07/02/2018. FINDINGS: Localizer images: Unremarkable. Motion artifact on several sequences degrades image quality and thus negatively affects a diagnostic sensitivity. The examination remains of sufficient quality for interpretation. T2 hyperintense, T1 hypointense abnormal signal within the distal phalanx of the first toe. This has significantly increased from prior exam. There is no significant abnormal fluid within the interphalangeal joint. Only minimal heterogeneous abnormal signal is noted within the head of the proximal phalanx on both T2 and T1-weighted imaging. No other sites of abnormal bone marrow signal are appreciated. Overlying ulceration along the medial aspect of the first toe at the level of the interphalangeal joint. Remainder of the soft tissues are within normal limits. Diffuse fatty atrophy of musculature suggested. IMPRESSION: 1. Findings highly suspicious for osteomyelitis of the distal phalanx of the first toe significantly progressed from prior exam. No rick evidence of septic arthritis of the interphalangeal joint of the first toe at this time, although heterogeneous signal intensity of the head of the proximal phalanx could raise concern for early osteomyelitis or alternatively sterile reactive change. 2. Soft tissue ulceration along the medial aspect of the first toe. The report will be called/faxed according to standard departmental protocol. Electronically signed by: Claudio Wallace M.D. 08/06/2018 11:00 AM Dictated: 08/06/18 1055 Transcribed: 08/06/18 1055
[2018-08-06] MEDS ORDERED: PIPERACILL/TAZOBAC CONSULT ACTIVE PRN (11:25)
[2018-08-06] MEDS ORDERED: PIPERACILLIN/TAZOBACTAM 3.375 GM in DEXTROSE 5% 100 ML IV ONE (12:00)
--- NOTE | 2018-08-06 12:04 | Hospitalist Progress Note ---
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 Elliott has no complaints this morning. Her blood sugar was low this morning in the 60s but she was asymptomatic. Pain is controlled Review of Systems Review of Systems: All systems reviewed & are unremarkable except as noted in HPI & below Physical Exam Physical Exam: General: no distress Eyes: normal inspection, PERLL Respiratory: chest non tender, clear to auscultation, normal breath sounds, no respiratory distress, no accessory muscle use Cardiac: regular rate and rhythm, no rub or gallop, no murmur, no edema, no jvd GI/: active bowel sounds, no abd pain or tenderness, soft, non distended Extremities: normal range of motion, normal strength, non tender Neuro/Psych: alert and oriented x 3, normal mood and affect Skin: normal color, dry Results & Data Vital Signs (Past 12 Hours) Vital Signs Temp Pulse Pulse Pulse Resp BP BP 08/06/18 11:43 36.5 C 68 17 116/62 08/06/18 08:00 36.8 C 67 16 118/68 08/06/18 06:50 36.6 C 62 20 101/46 L 08/06/18 04:00 36.8 C 55 L 16 105/59 L 08/06/18 00:21 63 73 85/49 L 93/50 L Pulse Ox 08/06/18 11:43 96 08/06/18 08:00 95 08/06/18 06:50 96 08/06/18 04:00 97 08/06/18 00:21 (1) 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
--- NOTE | 2018-08-06 12:09 | Orthopedic Consultation ---
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 Plain film and MRI results noted as above. MRI stating highly suspicious for osteo-at the distal phalanx. No abscesses or septic joint noted. I have spoken to Nadia Richard PA-C from the vascular service. Pt has h/o bilateral SFA occlusions. They have ordered an arterial ultrasound to assess flow in the lower extremity. Continue IV antibiotics for now and await vascular studies. I discussed with the family that treatment for this may involve IV antibiotics for an extended period of time with continued wound care to the ulcer versus possibility of amputation. I will have a [facility] physician see the patient for final recommendations. Thank you for this consult. History of Present Illness Reason for Consultation: Right great toe ulcer Attending Physician: Davey Arellano MD History of Present Illness Patient is an 88-year-old female with history of diabetes mellitus type 2, hypertension, PAD, and history of lower extremity ulcers in the past. Patient developed an ulceration on the right great toe on the medial aspect quite some time ago which continue to progressively worsen. She has been treated in the wound care center here in [place]. Denies olive brine tester antibx but recently was started on Dalvance. She was having ever increasing erythema of the foot and some drainage from the ulceration on her right great toe and she was ultimately admitted to the hospital yesterday evening. She states that she never used to have that much pain with the ulceration however over the last several days it began to have increased pain. Plain films that were taken suggested possible osteomyelitis of the distal phalanx. For this ulceration. Allergies Allergy/AdvReac Type Severity Reaction Status Date / Time No Known Allergies Allergy Verified 08/05/18 13:14 Home Medications Home Medications Medication Instructions Recorded Confirmed Type amlodipine 5 mg PO BID 08/05/18 08/05/18 History glipizide 10 mg PO BID 08/05/18 08/05/18 History insulin glargine [Lantus Solostar 15 units SUBCUT PM 08/05/18 08/05/18 History U-100 Insulin] lisinopril 40 mg PO DAILY 08/05/18 08/05/18 History metolazone 5 mg PO Q OTHER DAY 08/05/18 08/05/18 History metoprolol tartrate 25 mg PO BID 08/05/18 08/05/18 History pravastatin 40 mg PO DAILY 08/05/18 08/05/18 History Patient History Medical History Cellulitis (Chronic) Diabetes (Chronic) Renal failure (Chronic) S/P tubal ligation (Chronic) Surgical History S/P cataract extraction (Acute) Family History Other Family history non-contributory Social History Preferred Language: Gambian Communication Ability: Effective Visual Impairment: No Limitations Hearing Ability: Normal Technical Applications Specialist Required: No Beliefs That Will Affect Care: Faith Faith Beliefs: Anabaptist marital status: / Current Living Situation: Alone current occupational status: retired Feels Safe at Home: Yes Safety Concerns: Feels Safe At This Time Smoking Status: Never smoker Hx Alcohol Use: No Hx Substance Use: No Physical Exam Physical Exam: On examination of the right lower extremity, there is a dressing on the right great toe as well as a dressing on the midportion of her lower leg. She states that she had some small open wounds on the leg that they have been treating as well. Dressings have been removed and on the right great toe on the medial aspect shows what appears to be a dry ulcer with eschar measuring approximately 1-1/2 to 2 cm in length and a centimeter in width at the DIP joint. There is no gross purulence noted at this time. Pictures from 08/03/2018 did show a moistened ulceration the same size with a white granular covering with some darkened edges. This has obviously changed. She also had a moderate erythema of the toes and foot at that time which now has been resolving. Family is present and notices a definite difference in the amount of erythema she is had. Currently has mild erythema at best. Capillary refill is sluggish and I cannot appreciate dorsalis pedis or posterior tibial pulse on palpation. Wound care nurses present and at one point she states that she was able to get a dorsalis pedis on Doppler but not posterior tibial. The smaller wounds on her mid lower extremity appear to be healing well drainage noted. Results & Data Vital Signs (Past 12 Hours) Vital Signs Temp Pulse Pulse Pulse Resp BP BP 08/06/18 11:43 36.5 C 68 17 116/62 08/06/18 08:00 36.8 C 67 16 118/68 08/06/18 06:50 36.6 C 62 20 101/46 L 08/06/18 04:00 36.8 C 55 L 16 105/59 L 08/06/18 00:21 63 73 85/49 L 93/50 L Pulse Ox 08/06/18 11:43 96 08/06/18 08:00 95 08/06/18 06:50 96 08/06/18 04:00 97 08/06/18 00:21 Laboratory Results Laboratory Results WBC 7.47 K/uL (4.8-10.8) 08/06/18 07:11 RBC 3.56 M/uL (4.2-5.4) L 08/06/18 07:11 Hgb 11.0 g/dL (12.0-16.0) L 08/06/18 07:11 Hct 31.6 % (37-47) L 08/06/18 07:11 MCV 88.8 fL (80-100) 08/06/18 07:11 MCH 30.9 pg (25-34) 08/06/18 07:11 MCHC 34.8 g/dL (32-36) 08/06/18 07:11 RDW Std Deviation 42.3 fL (36.4-46.3) 08/06/18 07:11 RDW Coeff of Tommy 13.0 % (11.5-14.5) 08/06/18 07:11 Plt Count 277 K/uL (130-400) 08/06/18 07:11 MPV 9.4 fL (7.4-10.4) 08/06/18 07:11 PT 10.6 Seconds (9.0-12.0) 08/05/18 17:14 INR 1.0 (0.9-1.1) 08/05/18 17:14 Sodium 141 mmol/L (136-145) 08/05/18 15:59 Potassium 4.4 mmol/L (3.5-5.1) 08/05/18 15:59 Chloride 109 mmol/L (98-107) H 08/05/18 15:59 Carbon Dioxide 24 mmol/L (21-32) 08/05/18 15:59 8.0 (3-11) 08/05/18 15:59 BUN 45 mg/dl (7-18) H 08/05/18 15:59 1.46 mg/dl (0.6-1.2) H 08/05/18 15:59 Est Cr Clr Drug Dosing Not Reportable 08/05/18 15:59 Est GFR ( Amer) 36.9 08/05/18 15:59 Est GFR (Non-Af Amer) 31.8 08/05/18 15:59 30.5 (10-20) H 08/05/18 15:59 Glucose 79 mg/dl (70-99) 08/05/18 15:59 POC Glucose 150 (70-99) H 08/06/18 12:17 Estimat Average Glucose 160 mg/dl 08/05/18 17:03 7.2 % (4.5-5.6) H 08/05/18 17:03 Calcium 9.7 mg/dl (8.5-10.1) 08/05/18 15:59 0.4 mg/dl (0.2-1) 08/05/18 15:59 AST 13 U/L (15-37) L 08/05/18 15:59 ALT 14 U/L (12-78) 08/05/18 15:59 94 U/L (45-117) 08/05/18 15:59 7.4 gm/dl (6.4-8.2) 08/05/18 15:59 3.2 gm/dl (3.4-5.0) L 08/05/18 15:59 4.2 gm/dl (2.5-4.0) H 08/05/18 15:59 0.8 (0.9-2) L 08/05/18 15:59 Diagnostic Findings [facility], [place] [phone] Magnetic Resonance Report Patient: NEAL MEDEIROS Date: 08/05/18 MR#: [id number]: [address] Acct ID:[id number]: Date: [address] [place] [address] Zip: [place] [address] Age: 88Location: 3W Sex: F Room/Bed: [facility] Att Phy: Davey Arellano, MDDiagnosis: DIABETIC FOOT ULCER, R FOOT CELLULITIS Yudith Phy: Brant Leal, MDService Date: 08/06/18 Fam Phy: Interpreting Phy: Claudio Wallace MD Admit Phy: Damaris Davis Ordering Phy: Damaris Davis cc: ~ [place], [place] [phone] XRay Report Patient: NEAL MEDEIROS Date: 08/05/18 MR#: [id number]: [address] Acct ID:[id number]: Date: [address] [place] [address] Zip: [place] [address] Age: 88Location: 3W Sex: F Room/Bed: [facility] Att Phy: Davey Arellano, MDDiagnosis: DIABETIC FOOT ULCER, R FOOT CELLUL ITIS Yudith Phy: Brant Leal, MDService Date: 08/05/18 Fam Phy: Interpreting Phy: Claudio Wallace MD Admit Phy: Damaris Davis Ordering Phy: Damaris Davis cc: ~ XR foot RT min 3V routine CLINICAL HISTORY: 88 years-old Female presenting with r/o abscess vs cellulitis right great toe. TECHNIQUE: Frontal, oblique, and lateral views of the right foot were obtained. COMPARISON: Plain radiographs and MR of the right foot from 06/25/2018 and 07/02/2018, respectively. FINDINGS: Diffuse osteopenia. Irregularity of the medial aspect of the first toe at the level of the tuft suggestive of an ulceration. Trace subjacent lucency of the medial cortex of the base of the distal phalanx of the first toe though this is only minimally progressed from the prior exam. The interphalangeal joint of the first toe appears preserved. No acute fracture or malalignment. No advanced degenerative change. Soft tissue swelling along the medial aspect of the first toe. Atherosclerosis. IMPRESSION: Trace osseous or erosion subjacent to a suspected ulceration along the medial aspect of the first toe at the level of the base of the distal phalanx. Though this is minimally progressed since the prior exam, this does raise concern for early osteomyelitis. No rick evidence of septic arthritis of the interphalangeal joint. MR foot RT w/o con CLINICAL HISTORY: 88 years-old Female presenting with r/o osteo big toe. TECHNIQUE: Multisequence, multiplanar MR imaging of the right foot was performed without the use of intravenous contrast. IV contrast: None. COMPARISON: Plain radiograph from 08/05/2018 and MR from 07/02/2018. FINDINGS: Localizer images: Unremarkable. Motion artifact on several sequences degrades image quality and thus negatively affects a diagnostic sensitivity. The examination remains of sufficient quality for interpretation. T2 hyperintense, T1 hypointense abnormal signal within the distal phalanx of the first toe. This has significantly increased from prior exam. There is no significant abnormal fluid within the interphalangeal joint. Only minimal heterogeneous abnormal signal is noted within the head of the proximal phalanx on both T2 and T1-weighted imaging. No other sites of abnormal bone marrow signal are appreciated. Overlying ulceration along the medial aspect of the first toe at the level of the interphalangeal joint. Remainder of the soft tissues are within normal limits. Diffuse fatty atrophy of musculature suggested. IMPRESSION: 1. Findings highly suspicious for osteomyelitis of the distal phalanx of the first toe significantly progressed from prior exam. No rick evidence of septic arthritis of the interphalangeal joint of the first toe at this time, although heterogeneous signal intensity of the head of the proximal phalanx could raise concern for early osteomyelitis or alternatively sterile reactive change. 2. Soft tissue ulceration along the medial aspect of the first toe. The report will be called/faxed according to standard departmental protocol. 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
--- NOTE | 2018-08-06 15:41 | Ultrasound Report ---
Study: Arterial Doppler right leg HISTORY: Pain. Claudication. FINDINGS: Extensive calcified plaque throughout. High-grade intercritical velocities of the proximal right superficial femoral artery. There is potentially occlusion in its mid aspect. Calcified vessel dumont preclude complete evaluation. A monophasic waveforms of the popliteal artery. The right posterior tibial artery is occluded. Perone al artery is difficult to evaluate due to calcified vessel dumont. Dorsalis previous artery is monophasic. Ankle brachial indices could not be acquired due to calcified vessel dumont. IMPRESSION: 1. Near nondiagnostic study due to extensive vessel wall calcification. 2. High-grade stenosis of the proximal superficial femoral artery. 3. Multifocal occlusion versus incomplete visibility of the vessels of the remainder of the leg due t o extensive vascular calcification. Electronically signed by: Rashid Taveras M.D. 08/06/2018 3:40 PM
[2018-08-06] MEDS: PIPERACILLIN/TAZOBACTAM 3.375 GM in DEXTROSE 5% 100 ML IV SCH (17:16)
[2018-08-06] MEDS ORDERED: INSULIN GLARGINE SOLOSTAR 100 UNITS/ML 3 ML PEN SQ SCH (21:00)
[2018-08-06] MEDS: HYDROCODONE/ACETAMOPHEN 5/325MG TAB PO PRN (21:15)
[2018-08-07] MEDS: PIPERACILLIN/TAZOBACTAM 3.375 GM in DEXTROSE 5% 100 ML IV SCH ×3 (02:10→18:19)
[2018-08-07 07:26] LABS: Hemoglobin 10.1 g/dL (12.0-16.0); Mean Corpuscular Hgb Conc 33.7 g/dL (32-36); Mean Platelet Volume 9.5 fL (7.4-10.4); Platelet Count 255 K/uL (130-400); RDW Coefficient of Variation 12.9 % (11.5-14.5); RDW Standard Deviation 42.2 fL (36.4-46.3); Red Blood Count 3.37 M/uL (4.2-5.4); White Blood Count 6.06 K/uL (4.8-10.8)
[2018-08-07 07:54] LABS: Creatinine Clr Calc Pharmacy 19.9 ml/min
--- NOTE | 2018-08-07 08:08 | Hospitalist Progress Note ---
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: consult wound care nurse, ID Imipenem IV, pain control BC no growth X ray foot with possible early osteomyelitis, MRI showing early osteo as well - consulted ortho - abx, no surgery for now Angiogram with cardiology tomorrow (2) Hypertension: held home amlodipine and lisinopril for low bp overnight NSS @ 80 ml/hr (3) CKD (chronic kidney disease), stage III: With increase in creatinine today - will given NSS at 80 mls/hr (4) DMII (diabetes mellitus, type 2): A1c DMII diet Hold home glipizide Continue home insulin glargine and give ss coverge, bsgs ac & hs - decreased glargine to 10 units d/t decreased bsg (5) DVT prophylaxis: heparin subq Subjective Family at bedside. Patient reports pain is under control. No other complaints Review of Systems Review of Systems: All systems reviewed & are unremarkable except as noted in HPI & below Physical Exam Physical Exam: General: no distress Eyes: normal inspection, PERLL Respiratory: chest non tender, clear to auscultation, normal breath sounds, no respiratory distress, no accessory muscle use Cardiac: regular rate and rhythm, no rub or gallop, no murmur, no edema, no jvd GI/: active bowel sounds, no abd pain or tenderness, soft, non distended Extremities: normal range of motion, normal strength, non tender Neuro/Psych: alert and oriented x 3, normal mood and affect Skin: normal color, dry Results & Data Vital Signs (Past 12 Hours) Vital Signs Temp Pulse Pulse Pulse Resp BP Pulse Ox 08/07/18 07:04 36.6 C 68 20 115/69 95 08/07/18 00:33 71 101/53 L 08/07/18 00:20 08/06/18 23:15 37.1 C 70 16 86/48 L 94 08/06/18 20:50 36.7 C 76 16 96/57 L 94 Pulse Ox 08/07/18 07:04 08/07/18 00:33 08/07/18 00:20 94 08/06/18 23:15 08/06/18 20:50 (1) 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
[2018-08-07] MEDS ORDERED: metOLazone 5 MG TABLET PO SCH (09:00)
[2018-08-07] MEDS: METOPROLOL TARTRATE 25 MG TAB PO SCH ×2 (09:06→21:26)
[2018-08-07] MEDS: LISINOPRIL 40 MG TAB PO SCH (09:06)
[2018-08-07] MEDS: PRAVASTATIN SOD 40 MG TAB PO SCH (09:07)
[2018-08-07] MEDS: AMLODIPINE BESYLATE 5 MG TAB PO SCH ×2 (09:07→21:26)
[2018-08-07] MEDS: INSULIN ASPART 100 UNITS/ML 3 ML PEN SC SCH ×4 (09:08→21:25)
[2018-08-07] MEDS: HEPARIN SOD 5,000 UNIT/0.5 ML VIAL SQ SCH ×2 (09:09→21:25)
[2018-08-07] MEDS: SODIUM CHLORIDE 0.9% 1000ML 1,000 ML IV SCH ×2 (09:20→21:26)
--- NOTE | 2018-08-07 11:28 | Cardiology Progress Note ---
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 Peripheral arterial disease 3. Type 2 DM 4. CKD MRI confirmed osteomyelitis of right great toe, continues on IV antibiotics. Still with pain in toe but exam is improved. Arterial duplex yesterday demonstrates complex SFA disease with single vessel runoff. Ortho is recommending trial of conservative therapy at this point. Will plan for lower extremity angiogram tomorrow to further assess anatomy and revascularization options. Creatinine slightly higher today, recommend hydration today in anticipation of angiogram tomorrow. Supervising Physician Co-Signing Physician Notes Patient seen and examined. Agree with assessment and plan as oultined by Physician Nursery Laborer Nadia Richard. Patient comfortable with reduced pain. Foot warm without significant erythema. Diminished DP/PT pulses. Plan for angiogram and possible SFA intervention tomorrow pending stable renal function. Subjective Patient feeling well overall today, no acute complaints. Redness and edema of right foot improved. Still with significant pain in right great toe. Discussed ortho plans with Mao Zhao PAC, recommended trial of conservative therapy at this point with continued wound care and antibiotics. Review of Systems Review of Systems: All systems reviewed & are unremarkable except as noted in HPI & below Physical Exam Physical Exam: General: No acute distress, comfortable. HEENT: Head is normal. PERRLA. EOMI. Sclerae anicteric. Ears, nose and throat unremarkable. Mucous membranes moist. Neck: Normal carotid upstrokes, no bruits. No appreciable JVD. Lungs: Clear to auscultation bilaterally without rales, rhonchi or wheezes. Cardiac: Regular rate and rhythm. S1-S2 normal. No appreciable murmur, gallop or rub. Abdomen: Soft and nontender. Bowel sounds normal. No mass or organomegaly. No abdominal bruit. Extremities/vascular: --Well perfused. No peripheral edema. --Radial pulses 2+ bilaterally. DP/PT pulses nonpalpable on right. DP pulse diminished on left. --Sluggish cap refill --Ulceration of right medial great toe with eschar. No drainage. Periwound inflammation significantly improved today Results & Data Vital Signs (Past 12 Hours) Vital Signs Temp Pulse Pulse Resp BP Pulse Ox Pulse Ox 08/07/18 07:04 36.6 C 68 20 115/69 95 08/07/18 00:33 71 101/53 L 08/07/18 00:20 94 Laboratory Results Laboratory Results - last 24 hr 08/06/18 08/06/18 08/06/18 12:17 17:20 20:47 WBC RBC Hgb Hct MCV MCH MCHC RDW Std Deviation RDW Coeff of Tommy Plt Count MPV Creatinine Est Cr Clr Drug Dosing Est GFR ( Amer) Est GFR (Non-Af Amer) POC Glucose 150 H 167 H 168 H 08/07/18 08/07/18 08/07/18 06:51 06:51 08:02 WBC 6.06 RBC 3.37 L Hgb 10.1 L Hct 30.0 L MCV 89.0 MCH 30.0 MCHC 33.7 RDW Std Deviation 42.2 RDW Coeff of Tommy 12.9 Plt Count 255 MPV 9.5 Creatinine 1.78 H D Est Cr Clr Drug Dosing 19.9 Est GFR ( Amer) 29.0 Est GFR (Non-Af Amer) 25.0 POC Glucose 105 H (1) Chronic ulcer of great toe of right foot Non-pressure ulcer stage: with fat layer exposed Qualified Code(s): L97.512 - Non-pressure chronic ulcer of other part of right foot with fat layer exposed
--- NOTE | 2018-08-07 17:38 | Infectious Disease Progress Nt ---
Date of Service August 07, 2018 Assessment & Plan (1) Cellulitis of foot: Patient with cellulitis of the right foot in the setting of severe peripheral arterial disease. Patient to be treated with IV Zosyn which should cover previously isolated methicillin sensitive staph aureus. Consider vascular surgery consult, will continue IV antibiotics. Will follow. (2) Osteomyelitis of toe of right foot: Subjective Patient feeling well overall today, no acute complaints. Redness and edema of right foot improved. Still with significant pain in right great toe. MRI with findings consistent with osteomyelitis of the great toe. Vascular studies suggest significant superior femoral artery stenosis. Review of Systems Review of Systems: All systems reviewed & are unremarkable except as noted in HPI & below Physical Exam Constitutional: WD/WN, vitals as above comfortable; no acute distress Eyes: PERRL, conjunctivae normal, anicteric sclerae ENMT: external ear and nose normal, oropharynx normal Neck: trachea midline, no thyromegaly neck nontender Respiratory: normal respiratory effort, lungs clear to auscultation normal percussion; no respiratory distress Cardiovascular: Rate/Rhythm: regular rate and regular rhythm Heart Sounds: normal S1 and normal S2; no gallop, no murmur and no cardiac rub Gastrointestinal (Abdomen): normal bowel sounds, soft, nontender, no hepatosplenomegaly Musculoskeletal: no cyanosis or clubbing, extremities motor strength 5/5 No spinal tenderness, no joint swelling or erythema Skin: no rashes, warm and dry + wound (Right great toe with erythema of toe and foot) Neurologic: moves all extremities and awake; no focal motor deficits Mot or/Sensory: no sensory deficit Psychiatric: A+Ox3, euthymic affect Lymphatic: no cervical or axillary lymphadenopathy no inguinal lymphadenopathy Results & Data Vital Signs (Past 12 Hours) Vital Signs Temp Pulse Pulse Resp BP Pulse Ox 08/07/18 14:57 37.0 C 61 16 111/59 L 98 08/07/18 07:04 36.6 C 68 20 115/69 95 Laboratory Results Short CBC 08/07/18 Range/Units 06:51 WBC 6.06 (4.8-10.8) K/uL Hgb 10.1 L (12.0-16.0) g/dL Hct 30.0 L (37-47) % Plt Count 255 (130-400) K/uL BMP 08/07/18 06:51 Creatinine 1.78 H D Diagnostic Findings Microbiology 08/05/18 17:29 Blood Aerobic Blood Culture - Preliminary No growth in Aerobic bottle after 24 hours. 08/05/18 17:29 Blood Anaerobic Blood Culture - Preliminary No growth in Anaerobic bottle after 24 hours. 08/05/18 17:03 Blood Aerobic Blood Culture - Preliminary No growth in Aerobic bottle after 24 hours. 08/05/18 17:03 Blood Anaerobic Blood Culture - Preliminary No growth in Anaerobic bottle after 24 hours. MR foot RT w/o con CLINICAL HISTORY: 88 years-old Female presenting with r/o osteo big toe. TECHNIQUE: Multisequence, multiplanar MR imaging of the right foot was performed without the use of intravenous contrast. IV contrast: None. COMPARISON: Plain radiograph from 08/05/2018 and MR from 07/02/2018. FINDINGS: Localizer images: Unremarkable. Motion artifact on several sequences degrades image quality and thus negatively affects a diagnostic sensitivity. The examination remains of sufficient quality for interpretation. T2 hyperintense, T1 hypointense abnormal signal within the distal phalanx of the first toe. This has significantly increased from prior exam. There is no significant abnormal fluid within the interphalangeal joint. Only minimal heterogeneous abnormal signal is noted within the head of the proximal phalanx on both T2 and T1-weighted imaging. No other sites of abnormal bone marrow signal are appreciated. Overlying ulceration along the medial aspect of the first toe at the level of the interphalangeal joint. Remainder of the soft tissues are within normal limits. Diffuse fatty atrophy of musculature suggested. IMPRESSION: 1. Findings highly suspicious for osteomyelitis of the distal phalanx of the first toe significantly progressed from prior exam. No rick evidence of septic arthritis of the interphalangeal joint of the first toe at this time, although heterogeneous signal intensity of the head of the proximal phalanx could raise concern for early osteomyelitis or alternatively sterile reactive change. 2. Soft tissue ulceration along the medial aspect of the first toe. The report will be called/faxed according to standard departmental protocol. Electronically signed by: Claudio Wallace M.D. 08/06/2018 11:00 AM Dictated: 08/06/18 1055 Transcribed: 08/06/18 1055
[2018-08-07] MEDS: HYDROCODONE/ACETAMOPHEN 5/325MG TAB PO PRN (19:44)
[2018-08-07] MEDS: CARBOHYDRATES FOR HYPOGLYCEMIA PO PRN (20:37)
--- NOTE | 2018-08-07 21:11 | Progress Note ---
Date of Service August 07, 2018 Received page from patient's nurse asking about evening insulin dosing. Is scheduled for 10 units of lantus but had a couple recent low blood sugars requiring some orange juice. From talking with patient's nurse it is unclear how much PO food she's had today. Plan: - Changed this evening's dose to lantus 5 mg as a precaution. - Likely needs it changed back to 10 units for tomorrow, depending on how things go. Shree Lanza, PGY2 Overnight call Results & Data Vital Signs (Past 12 Hours) Vital Signs Temp Pulse Resp BP Pulse Ox 08/07/18 14:57 37.0 C 61 16 111/59 L 98
[2018-08-07] MEDS ORDERED: INSULIN GLARGINE SOLOSTAR 100 UNITS/ML 3 ML PEN SQ SCH (21:30)
[2018-08-08] MEDS: PIPERACILLIN/TAZOBACTAM 3.375 GM in DEXTROSE 5% 100 ML IV SCH ×3 (01:53→17:55)
[2018-08-08 07:33] LABS: Hematocrit (blood only) 30.6 % (37-47); Hemoglobin 10.4 g/dL (12.0-16.0); Mean Corpuscular Volume 89.2 fL (80-100); Mean Platelet Volume 9.6 fL (7.4-10.4); Platelet Count 255 K/uL (130-400); RDW Coefficient of Variation 12.9 % (11.5-14.5); RDW Standard Deviation 41.8 fL (36.4-46.3); Red Blood Count 3.43 M/uL (4.2-5.4); White Blood Count 6.59 K/uL (4.8-10.8)
[2018-08-08 08:07] LABS: BUN Creatinine Ratio 26.2 (10-20); Calcium 8.7 mg/dl (8.5-10.1); Creatinine Clr Calc Pharmacy 21.7 ml/min; Est GFR (African American) 32.3; Est GFR (Non-African American) 27.8; Potassium 4.3 mmol/L (3.5-5.1)
[2018-08-08] MEDS: HEPARIN SOD 5,000 UNIT/0.5 ML VIAL SQ SCH ×2 (09:12→20:45)
[2018-08-08] MEDS: INSULIN ASPART 100 UNITS/ML 3 ML PEN SC SCH ×3 (09:12→21:33)
[2018-08-08] MEDS: LISINOPRIL 40 MG TAB PO SCH (09:18)
[2018-08-08] MEDS: PRAVASTATIN SOD 40 MG TAB PO SCH (09:18)
[2018-08-08] MEDS: METOPROLOL TARTRATE 25 MG TAB PO SCH ×2 (09:18→20:43)
[2018-08-08] MEDS: AMLODIPINE BESYLATE 5 MG TAB PO SCH ×2 (09:18→20:43)
[2018-08-08] MEDS ORDERED: Nursing to Pharmacy Communication ONE ×2 (10:01→17:01)
[2018-08-08] MEDS: SODIUM CHLORIDE 0.9% 1000ML 1,000 ML IV SCH ×2 (10:25→21:42)
[2018-08-08] MEDS: HYDROCODONE/ACETAMOPHEN 5/325MG TAB PO PRN (11:31)
[2018-08-08] MEDS ORDERED: INSULIN ASPART 100 UNITS/ML 3 ML PEN SC SCH (12:00)
--- NOTE | 2018-08-08 13:11 | Hospitalist Progress Note ---
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: consult wound care nurse, ID Imipenem IV, pain control BC no growth X ray foot with possible early osteomyelitis, MRI showing early osteo as well - consulted ortho - abx, no surgery for now Angiogram with cardiology 08/08 (2) Hypertension: held home amlodipine and lisinopril for low bp overnight NSS @ 80 ml/hr (3) CKD (chronic kidney disease), stage III: Creatinine improving but not yet at baseline - continue NSS at 80 mls/hr (4) DMII (diabetes mellitus, type 2): A1c DMII diet Hold home glipizide sugars have been running low in the morning - per pharmacy rec will discontinue lantus and give carb coverage (5) DVT prophylaxis: heparin subq Subjective Ms. Elliott is comfortable, reports pain in her toes is tolerable. She will have an angiogram later this afternoon Review of Systems Review of Systems: All systems reviewed & are unremarkable except as noted in HPI & below Physical Exam Physical Exam: General: no distress Eyes: normal inspection, PERLL Respiratory: chest non tender, clear to auscultation, normal breath sounds, no respiratory distress, no accessory muscle use Cardiac: regular rate and rhythm, no rub or gallop, no murmur, no edema, no jvd GI/: active bowel sounds, no abd pain or tenderness, soft, non distended Extremities: normal range of motion, normal strength, non tender Neuro/Psych: alert and oriented x 3, normal mood and affect Skin: normal color, dry Results & Data Vital Signs (Past 12 Hours) Vital Signs Temp Pulse Pulse Resp BP Pulse Ox 08/08/18 11:41 36.6 C 64 18 138/58 L 95 08/08/18 07:45 37.0 C 62 15 132/58 L 95 (1) 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
--- NOTE | 2018-08-08 15:43 | Infectious Disease Progress Nt ---
Date of Service August 08, 2018 Assessment & Plan (1) Cellulitis of foot: Patient with cellulitis of the right foot in the setting of severe peripheral arterial disease. Patient to be treated with IV Zosyn which should cover previously isolated methicillin sensitive staph aureus. For angiography later today. Will follow. Subjective Ms. Elliott is comfortable, reports pain in her toes is tolerable. She will have an angiogram later this afternoon Physical Exam Constitutional: WD/WN, vitals as above comfortable; no acute distress Eyes: PERRL, conjunctivae normal, anicteric sclerae ENMT: external ear and nose normal, oropharynx normal Neck: trachea midline, no thyromegaly neck nontender Respiratory: normal respiratory effort, lungs clear to auscultation normal percussion; no respiratory distress and does not use accessory muscles Cardiovascular: Rate/Rhythm: regular rate and regular rhythm Heart Sounds: normal S1 and normal S2; no gallop, no murmur and no cardiac rub Vessels: no JVD Gastrointestinal (Abdomen): normal bowel sounds, soft, nontender, no hepatosplenomegaly Musculoskeletal: no cyanosis or clubbing, extremities motor strength 5/5 Spine: thoracic spine normal to inspection and lumbar spine normal to inspection; no cervical spinal tenderness Skin: no rashes, warm and dry normal turgor, + wound (Right great toe with surrounding erythema and induration) and + erythema (Right foot) Neurologic: patellar DTR's 2+ bilat, sensation intact moves all extremities and awake; no focal motor deficits Motor/Sensory: no sensory deficit Psychiatric: A+Ox3, euthymic affect Orientation: cooperative Lymphatic: no cervical or axillary lymphadenopathy no inguinal lymphadenopathy Results & Data Vital Signs (Past 12 Hours) Vital Signs Temp Pulse Pulse Resp BP BP Pulse Ox 08/08/18 14:53 37 C 73 17 123/61 91 08/08/18 11:41 36.6 C 64 18 138/58 L 95 08/08/18 07:45 37.0 C 62 15 132/58 L 95
--- NOTE | 2018-08-08 16:34 | Cardiology Progress Note ---
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: 2. Peripheral arterial disease 3. Type 2 DM 4. CKD MRI confirmed osteomyelitis of right great toe, continues on IV antibiotics. Improved pain in foot. Arterial duplex yesterday demonstrates complex SFA disease with single vessel runoff. Ortho is recommending trial of conservative therapy at this point. Will plan for lower extremity angiogram Saturday. Patient and family prefer she stay in the hospital over the weekend. Subjective No acute complaints. Foot pain has improved. Angiogram not able to be done today, will plan for Saturday morning. Physical Exam Physical Exam: General: No acute distress, comfortable. HEENT: Head is normal. PERRLA. EOMI. Sclerae anicteric. Ears, nose and throat unremarkable. Mucous membranes moist. Neck: Normal carotid upstrokes, no bruits. No appreciable JVD. Lungs: Clear to auscultation bilaterally without rales, rhonchi or wheezes. Cardiac: Regular rate and rhythm. S1-S2 normal. No appreciable murmur, gallop or rub. Abdomen: Soft and nontender. Bowel sounds normal. No mass or organomegaly. No abdominal bruit. Extremities/vascular: --Well perfused. No peripheral edema. --Radial pulses 2+ bilaterally. DP/PT pulses nonpalpable on right. DP pulse diminished on left. --Sluggish cap refill --Ulceration of right medial great toe with eschar. No drainage. Periwound inflammation significantly improved today Results & Data Vital Signs (Past 12 Hours) Vital Signs Temp Pulse Pulse Resp BP BP Pulse Ox 08/08/18 14:53 37 C 73 17 123/61 91 08/08/18 11:41 36.6 C 64 18 138/58 L 95 08/08/18 07:45 37.0 C 62 15 132/58 L 95 Laboratory Results Laboratory Results - last 24 hr 08/07/18 08/07/18 08/07/18 17:25 20:26 20:29 WBC RBC Hgb Hct MCV MCH MCHC RDW Std Deviation RDW Coeff of Tommy Plt Count MPV Sodium Potassium Chloride Carbon Dioxide Anion Gap BUN Creatinine Est Cr Clr Drug Dosing Est GFR ( Amer) Est GFR (Non-Af Amer) BUN/Creatinine Ratio Glucose POC Glucose 238 H 62 L* 68 L* Calcium 05/08/08/18 08/08/18 20:51 07:08 07:08 WBC 6.59 RBC 3.43 L Hgb 10.4 L Hct 30.6 L MCV 89.2 MCH 30.3 MCHC 34.0 RDW Std Deviation 41.8 RDW Coeff of Tommy 12.9 Plt Count 255 MPV 9.6 Sodium 141 Potassium 4.3 Chloride 112 H Carbon Dioxide 23 Anion Gap 6.0 BUN 43 H Creatinine 1.63 H Est Cr Clr Drug Dosing 21.7 Est GFR ( Amer) 32.3 Est GFR (Non-Af Amer) 27.8 BUN/Creatinine Ratio 26.2 H Glucose 86 POC Glucose 90 Calcium 8.7 08/08/18 08/08/18 08:07 11:54 WBC RBC Hgb Hct MCV MCH MCHC RDW Std Deviation RDW Coeff of Tommy Plt Count MPV Sodium Potassium Chloride Carbon Dioxide Anion Gap BUN Creatinine Est Cr Clr Drug Dosing Est GFR ( Amer) Est GFR (Non-Af Amer) BUN/Creatinine Ratio Glucose POC Glucose 87 127 H Calcium (1) Chronic ulcer of great toe of right foot Non-pressure ulcer stage: with fat layer exposed Qualified Code(s): L97.512 - Non-pressure chronic ulcer of other part of right foot with fat layer exposed
[2018-08-09] MEDS: PIPERACILLIN/TAZOBACTAM 3.375 GM in DEXTROSE 5% 100 ML IV SCH ×3 (01:47→17:16)
[2018-08-09] MEDS: HYDROCODONE/ACETAMOPHEN 5/325MG TAB PO PRN (01:52)
[2018-08-09 07:26] LABS: Hematocrit (blood only) 28.1 % (37-47); Hemoglobin 9.6 g/dL (12.0-16.0); Mean Corpuscular Hgb Conc 34.2 g/dL (32-36); Mean Corpuscular Volume 87.5 fL (80-100); Mean Platelet Volume 8.9 fL (7.4-10.4); Platelet Count 252 K/uL (130-400); RDW Coefficient of Variation 12.6 % (11.5-14.5); RDW Standard Deviation 40.8 fL (36.4-46.3); Red Blood Count 3.21 M/uL (4.2-5.4); White Blood Count 6.43 K/uL (4.8-10.8)
[2018-08-09 08:05] LABS: BUN Creatinine Ratio 20.7 (10-20); Calcium 8.6 mg/dl (8.5-10.1); Est GFR (Non-African American) 36.3; Potassium 4.2 mmol/L (3.5-5.1)
[2018-08-09] MEDS: PRAVASTATIN SOD 40 MG TAB PO SCH (09:13)
[2018-08-09] MEDS: AMLODIPINE BESYLATE 5 MG TAB PO SCH ×2 (09:13→20:59)
[2018-08-09] MEDS: METOPROLOL TARTRATE 25 MG TAB PO SCH ×2 (09:13→20:59)
[2018-08-09] MEDS: LISINOPRIL 40 MG TAB PO SCH (09:13)
[2018-08-09] MEDS: HEPARIN SOD 5,000 UNIT/0.5 ML VIAL SQ SCH ×2 (09:14→20:58)
[2018-08-09] MEDS: INSULIN ASPART 100 UNITS/ML 3 ML PEN SC SCH ×4 (09:16→21:02)
[2018-08-09] MEDS: SODIUM CHLORIDE 0.9% 1000ML 1,000 ML IV SCH (10:03)
--- NOTE | 2018-08-09 12:14 | Hospitalist Progress Note ---
Date of Service August 09, 2018 Assessment & Plan (1) Chronic ulcer of great toe of right foot: consulted wound care nurse, ID Zosyn IV, pain control BC no growth X ray foot with possible early osteomyelitis, MRI showing early osteo as well - consulted ortho - abx, no surgery for now Angiogram with cardiology Saturday (2) Hypertension: BPs have improved following hypotension earlier in admission - can continue amlodipine but will hold lisinopril for kidney function NSS @ 80 ml/hr (3) CKD (chronic kidney disease), stage III: Creatinine improving and at baseline - will continue NSS at 80 mls/hr as patient is taking in poor po. Will need to monitor fluid balance (4) DMII (diabetes mellitus, type 2): A1c 7.2 DMII diet Hold home glipizide hypoglycemia two mornings in a row - per pharmacy rec discontinued lantus and give carb coverage - sugars have improved (5) DVT prophylaxis: heparin subq Subjective Ms. Elliott'kaitlin pain is well controlled. She has no complaints Review of Systems Review of Systems: All systems reviewed & are unremarkable except as noted in HPI & below Physical Exam Physical Exam: General: no distress Eyes: normal inspection, PERLL Respiratory: chest non tender, clear to auscultation, normal breath sounds, no respiratory distress, no accessory muscle use Cardiac: regular rate and rhythm, no rub or gallop, systolic murmur, no edema, no jvd GI/: active bowel sounds, no abd pain or tenderness, soft, non distended Extremities: normal range of motion, normal strength, non tender Neuro/Psych: alert and oriented x 3, normal mood and affect Skin: normal color, dry Results & Data Laboratory Results Abnormal lab results 08/08/18 08/08/18 08/08/18 Range/Units 11:54 16:05 20:53 RBC (4.2-5.4) M/uL Hgb (12.0-16.0) g/dL Hct (37-47) % Chloride (98-107) mmol/L BUN (7-18) mg/dl Creatinine (0.6-1.2) mg/dl BUN/Creatinine Ratio (10-20) Glucose (70-99) mg/dl POC Glucose 127 H 120 H 188 H (70-99) 08/09/18 08/09/18 08/09/18 Range/Units 07:05 07:05 08:14 RBC 3.21 L (4.2-5.4) M/uL Hgb 9.6 L (12.0-16.0) g/dL Hct 28.1 L (37-47) % Chloride 112 H (98-107) mmol/L BUN 27 H (7-18) mg/dl Creatinine 1.31 H D (0.6-1.2) mg/dl BUN/Creatinine Ratio 20.7 H (10-20) Glucose 117 H (70-99) mg/dl POC Glucose 116 H (70-99) 08/09/18 Range/Units 12:04 RBC (4.2-5.4) M/uL Hgb (12.0-16.0) g/dL Hct (37-47) % Chloride (98-107) mmol/L BUN (7-18) mg/dl Creatinine (0.6-1.2) mg/dl BUN/Creatinine Ratio (10-20) Glucose (70-99) mg/dl POC Glucose 177 H (70-99) (1) 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
[2018-08-09] MEDS: ACETAMINOPHEN 325 MG TAB PO PRN (23:38)
[2018-08-10] MEDS: PIPERACILLIN/TAZOBACTAM 3.375 GM in DEXTROSE 5% 100 ML IV SCH ×4 (02:20→18:14)
[2018-08-10 07:14] LABS: BUN Creatinine Ratio 16.1 (10-20); Calcium 8.9 mg/dl (8.5-10.1); Creatinine Clr Calc Pharmacy 30.7 ml/min; Est GFR (African American) 49.2; Est GFR (Non-African American) 42.4
[2018-08-10] MEDS: HEPARIN SOD 5,000 UNIT/0.5 ML VIAL SQ SCH ×2 (08:52→21:13)
[2018-08-10] MEDS: PRAVASTATIN SOD 40 MG TAB PO SCH (08:52)
[2018-08-10] MEDS: METOPROLOL TARTRATE 25 MG TAB PO SCH ×2 (08:52→21:13)
[2018-08-10] MEDS: LISINOPRIL 40 MG TAB PO SCH (08:52)
[2018-08-10] MEDS: INSULIN ASPART 100 UNITS/ML 3 ML PEN SC SCH ×4 (08:55→21:13)
[2018-08-10] MEDS ORDERED: DAPTOmycin 1 MG in SYRINGE 0 ML IV SCH (09:00)
[2018-08-10] MEDS: DAPTOmycin 200 MG in SYRINGE 0 ML IV SCH (10:28)
[2018-08-10] MEDS ORDERED: DAPTOMYCIN CONSULT ACTIVE PRN (10:53)
--- NOTE | 2018-08-10 11:40 | Hospitalist Progress Note ---
Date of Service August 10, 2018 Assessment & Plan (1) Chronic ulcer of great toe of right foot: consulted wound care nurse, ID Zosyn IV, pain control - will add daptomycin in light of overnight fever BC no growth, obtained 2 more BC due to fever X ray foot with possible early osteomyelitis, MRI showing early osteo as well - consulted ortho - abx, no surgery for now Angiogram with cardiology Saturday (2) Hypertension: BPs have improved following hypotension earlier in admission - can continue amlodipine and lisinopril as kidney function has improved and blood pressures are acceptable discontinue IVF (3) CKD (chronic kidney disease), stage III: Creatinine improving and at baseline - discontinue IVF (4) DMII (diabetes mellitus, type 2): A1c 7.2 DMII diet Hold home glipizide hypoglycemia two mornings in a row - per pharmacy rec discontinued lantus and provided carb coverage - sugars have improved (5) DVT prophylaxis: heparin subq Subjective Ms. Elliott was febrile overnight. Today she has no complaints. Her pain is well controlled. Review of Systems Review of Systems: All systems reviewed & are unremarkable except as noted in HPI & below Physical Exam Physical Exam: General: no distress Eyes: normal inspection, PERLL Respiratory: chest non tender, clear to auscultation, normal breath sounds, no respiratory distress, no accessory muscle use Cardiac: regular rate and rhythm, no rub or gallop, no murmur, no edema, no jvd GI/: active bowel sounds, no abd pain or tenderness, soft, non distended Extremities: normal range of motion, normal strength, non tender Neuro/Psych: alert and oriented x 3, normal mood and affect Skin: normal color, dry, right great toe with improved erythema, not as boggy, not as tender to palpation Results & Data Vital Signs (Past 12 Hours) Vital Signs Temp Pulse Resp BP Pulse Ox 08/10/18 07:13 36.7 C 68 16 155/73 H 96 08/10/18 00:39 37.6 C H (1) 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
[2018-08-10] MEDS: HYDROCODONE/ACETAMOPHEN 5/325MG TAB PO PRN ×2 (16:05→21:50)
[2018-08-11] MEDS: PIPERACILLIN/TAZOBACTAM 3.375 GM in DEXTROSE 5% 100 ML IV SCH ×3 (02:14→18:45)
[2018-08-11] MEDS ORDERED: Nursing to Pharmacy Communication ONE ×2 (04:23→18:12)
[2018-08-11] MEDS: INSULIN ASPART 100 UNITS/ML 3 ML PEN SC SCH ×3 (06:01→22:06)
[2018-08-11] MEDS: SODIUM CHLORIDE 0.9% 1000ML 1,000 ML IV SCH ×3 (08:23→20:39)
[2018-08-11] MEDS: METOPROLOL TARTRATE 25 MG TAB PO SCH ×2 (09:00→21:56)
[2018-08-11] MEDS: HEPARIN SOD 5,000 UNIT/0.5 ML VIAL SQ SCH ×2 (09:00→22:06)
[2018-08-11 09:49] LABS: Creatinine Clr Calc Pharmacy 27.6 ml/min; Est GFR (African American) 43.2; Est GFR (Non-African American) 37.3
--- NOTE | 2018-08-11 10:08 | Cardiology Progress Note ---
Date of Service August 11, 2018 Assessment & Plan (1) Chronic ulcer of great toe of right foot: 2. Peripheral arterial disease 3. Type 2 DM 4. CKD Proceed with bilateral lower extremity angiogram and possible intervention to right SFA later today. Subjective Feeling well today. No issues over the weekend. Still with residual right foot pain. Review of Systems Review of Systems: All systems reviewed & are unremarkable except as noted in HPI & below Physical Exam Physical Exam: General: Comfortable, no acute distress HEENT: Sclerae anicteric, mucous membranes moist Lungs: Clear to auscultation bilaterally, no rhonchi or wheezes Cardiac: Regular rate and rhythm, no murmurs. No JVD. Abdomen: Soft, nontender, nondistended, positive bowel sounds. Extremities: Warm, right lower extremity dressed. Diminished cap refill. DP/PT pulses nonpalpable on right. Skin: No rashes or lesions. Neuro: Nonfocal Psych: Alert orient x3, normal affect and mood Results & Data Vital Signs (Past 12 Hours) Vital Signs Temp Pulse Pulse Resp BP BP Pulse Ox 08/11/18 09:07 66 156/66 H 08/11/18 07:05 36.8 C 62 16 147/74 H 97 08/10/18 22:59 37.1 C 54 L 16 97/57 L 97 (1) Chronic ulcer of great toe of right foot Non-pressure ulcer stage: with fat layer exposed Qualified Code(s): L97.512 - Non-pressure chronic ulcer of other part of right foot with fat layer exposed
[2018-08-11] MEDS: DAPTOmycin 200 MG in SYRINGE 0 ML IV SCH (10:16)
--- NOTE | 2018-08-11 12:11 | Pre Anesthesia Assessment ---
Date of Service August 11, 2018 Pre Sedation Assessment Vital Signs Temp Pulse Pulse Pulse Resp BP BP 08/11/18 11:23 36.5 C 71 16 163/72 H 08/11/18 09:07 66 156/66 H 08/11/18 07:05 36.8 C 62 16 147/74 H 08/10/18 22:59 37.1 C 54 L 16 97/57 L 08/10/18 21:09 36.8 C 65 128/63 08/10/18 15:05 37.1 C 70 17 112/65 Pulse Ox 08/11/18 11:23 95 08/11/18 09:07 08/11/18 07:05 97 08/10/18 22:59 97 08/10/18 21:09 08/10/18 15:05 97 Cardiovascular RRR, no murmur, no edema Respiratory normal respiratory effort, lungs clear to auscultation Pre-Sedation Airway Assessment Smoking Status: Never smoker Hx Sleep Apnea: No Hx Difficult Intubation: No Short, Thick Neck: No Thyromental Distance: > or= 3.5 Finger Breadths Oral Cavity: + Dentures Mallampati Class: I ASA: ASA3 NPO Status Date of Last Intake of Fluids: 08/11/18 Time of Last Intake of Fluids: 06:00 Date of Last Intake of Solid Food: 08/10/18 Time of Last Intake of Solid Foods: 18:00 Procedure Planning Contraindications for Sedation: none Current Medications Reviewed: Yes Notes The planned sedation has been discussed with the patient. Informed Consent was obtained. I have identified the patient, determined the appropriateness of sedation and have assessed the patient immediately prior to the procedure. All medicine(s) and interventions are by my order.
[2018-08-11] MEDS ORDERED: NITROGLYCERIN 5 MG/ML 10 ML VIAL ONE (12:35)
[2018-08-11] MEDS ORDERED: NITROGLYCERIN/D5W 100MCG/ML 20ML SYR ONE (12:36)
[2018-08-11] MEDS ORDERED: NiCARDipine HCL INJ 2.5 MG/ML 10 ML AMP ONE (12:37)
[2018-08-11] MEDS ORDERED: HEPARIN SOD (PORCINE) 1000 UNIT/ML 10 ML VIAL ONE (13:29)
[2018-08-11] MEDS ORDERED: MIDAZOLAM HCL 1 MG/ML 2ML VIAL ONE (13:29)
[2018-08-11] MEDS ORDERED: fentaNYL citrate 100 MCG/2 ML VIAL ONE (13:29)
[2018-08-11] MEDS ORDERED: DiphenhydrAMINE HCL 50 MG/ML VIAL ONE (14:56)
[2018-08-11] MEDS ORDERED: LIDOCAINE HCL 1% 20 ML VIAL INJ ONE (15:38)
[2018-08-11] MEDS ORDERED: VISIPAQUE IV PRN (15:38)
[2018-08-11] MEDS ORDERED: NITROGLYCERIN/D5W 100MCG/ML 20ML SYR IART ONE (15:38)
[2018-08-11] MEDS ORDERED: MIX: VIPERSLIDE 20ML + NITRO 5MG + NSS 1000ML IART ONE (15:38)
--- NOTE | 2018-08-11 16:08 | Post Anesthesia Assessment ---
Date of Service August 11, 2018 Post Sedation Assessment Vital Signs Temp Pulse Pulse Pulse Pulse Pulse Resp 08/11/18 15:50 90 16 08/11/18 15:45 93 H 16 08/11/18 15:40 91 H 16 08/11/18 15:35 90 18 08/11/18 15:30 91 H 18 08/11/18 15:25 91 H 18 08/11/18 15:20 92 H 18 08/11/18 15:15 95 H 18 08/11/18 15:10 98 H 18 08/11/18 15:05 105 H 18 08/11/18 15:00 98 H 18 08/11/18 14:55 96 H 14 08/11/18 14:50 97 H 13 08/11/18 14:45 98 H 13 08/11/18 14:40 75 14 08/11/18 14:35 75 14 08/11/18 14:30 77 16 08/11/18 14:25 83 14 08/11/18 14:20 80 16 08/11/18 14:15 80 16 08/11/18 14:10 77 17 08/11/18 14:05 77 16 08/11/18 14:00 78 17 08/11/18 13:35 78 17 08/11/18 12:11 36.9 C 81 18 08/11/18 11:23 36.5 C 71 16 08/11/18 09:07 66 08/11/18 07:05 36.8 C 62 16 08/10/18 22:59 37.1 C 54 L 16 08/10/18 21:09 36.8 C 65 BP BP Pulse Ox 08/11/18 15:50 144/63 H 100 08/11/18 15:45 142/67 H 100 08/11/18 15:40 150/72 H 99 08/11/18 15:35 138/70 96 08/11/18 15:30 122/64 100 08/11/18 15:25 126/63 98 08/11/18 15:20 132/67 99 08/11/18 15:15 136/64 98 08/11/18 15:10 126/64 98 08/11/18 15:05 132/81 97 08/11/18 15:00 134/71 98 08/11/18 14:55 142/70 H 99 08/11/18 14:50 124/63 97 08/11/18 14:45 128/57 L 100 08/11/18 14:40 137/63 100 08/11/18 14:35 171/69 H 100 08/11/18 14:30 165/77 H 100 08/11/18 14:25 142/76 H 100 08/11/18 14:20 154/73 H 100 08/11/18 14:15 147/75 H 08/11/18 14:10 152/73 H 100 08/11/18 14:05 152/74 H 100 08/11/18 14:00 172/77 H 100 08/11/18 13:35 171/77 H 100 08/11/18 12:11 184/78 H 97 08/11/18 11:23 163/72 H 95 08/11/18 09:07 156/66 H 08/11/18 07:05 147/74 H 97 08/10/18 22:59 97/57 L 97 08/10/18 21:09 128/63 Recovery Score Activity: Moves 4 extremities Respiration: Deep Breath/Cough Circulation: +/-20% PreAnes Value Consciousness: Fully Awake Oxygen Saturation: O2 needed for >90% Discharge Sedation Level of Care: Fast Track Phase II Post Sedation Plan On clinical assessment, the patient appears to have tolerated the sedation without complications. Patient is recovering as anticipated. Patient will continue to be monitored by nursing and may be discharged when sedation discharge criteria are met per below protocol. Upon Completions of procedure and additional 15 minutes continue every 5 minute vital signs and the P.A.R. score; then discharge to a Phase I or Fast Track to Phase II per the following guidelines: * Discharge Patient to appropriate Phase II area if PAR is 8 or greater or return to pre- procedure baseline. The post - procedure orders will be as directed. * If PAR score is less than 8 or not return to pre-procedure baseline then patient will follow Phase I monitoring till PAR is reached for Phase II. The Phase I may be done in procedure room or may call to secure a Phase I area. * If naloxone or flumazenil are used for reversal, hold in Phase I for continued monitoring from when last reversal dose was given for a minimum of 60 minutes or longer pending the nurse and/or physician discretion of patient condition before discharge to Phase II. Please call the Sedation Physician to re-evaluate and complete post-note for discharge to Phase II area. Do NOT discharge from procedure sedation or Phase 1 until post- sedation evaluation note is complete by procedure /sedation MD Sedation Discharge Instructions to be given to the patient at discharge to home.
--- NOTE | 2018-08-11 16:09 | Infectious Disease Progress Nt ---
Date of Service August 11, 2018 Assessment & Plan (1) Cellulitis of foot: Patient with cellulitis of the right foot in the setting of severe peripheral arterial disease. Patient to be treated with IV Zosyn which should cover previously isolated methicillin sensitive staph aureus. For angiography later today. Will follow. Subjective Feeling well today. No issues over the weekend. Still with residual right foot pain. Physical Exam Constitutional: WD/WN, vitals as above comfortable; no acute distress Eyes: PERRL, conjunctivae normal, anicteric sclerae ENMT: external ear and nose normal, oropharynx normal Neck: trachea midline, no thyromegaly neck nontender Respiratory: normal respiratory effort, lungs clear to auscultation normal percussion; no respiratory distress and does not use accessory muscles Cardiovascular: Rate/Rhythm: regular rate and regular rhythm Heart Sounds: normal S1 and normal S2; no gallop, no murmur and no cardiac rub Vessels: no JVD Gastrointestinal (Abdomen): normal bowel sounds, soft, nontender, no hepatosplenomegaly Musculoskeletal: no cyanosis or clubbing, extremities motor strength 5/5 Spine: thoracic spine normal to inspection and lumbar spine normal to inspection; no cervical spinal tenderness Skin: no rashes, warm and dry normal turgor, + wound (Right great toe with surrounding erythema and induration) and + erythema (Right foot) Neurologic: patellar DTR's 2+ bilat, sensation intact moves all extremities and awake; no focal motor deficits Motor/Sensory: no sensory deficit Psychiatric: A+Ox3, euthymic affect Orientation: cooperative Lymphatic: no cervical or axillary lymphadenopathy no inguinal lymphadenopathy Results & Data Vital Signs (Past 12 Hours) Vital Signs Temp Pulse Pulse Pulse Pulse Pulse Resp 08/11/18 15:50 90 16 08/11/18 15:45 93 H 16 08/11/18 15:40 91 H 16 08/11/18 15:35 90 18 08/11/18 15:30 91 H 18 08/11/18 15:25 91 H 18 08/11/18 15:20 92 H 18 08/11/18 15:15 95 H 18 08/11/18 15:10 98 H 18 08/11/18 15:05 105 H 18 08/11/18 15:00 98 H 18 08/11/18 14:55 96 H 14 08/11/18 14:50 97 H 13 08/11/18 14:45 98 H 13 08/11/18 14:40 75 14 08/11/18 14:35 75 14 08/11/18 14:30 77 16 08/11/18 14:25 83 14 08/11/18 14:20 80 16 08/11/18 14:15 80 16 08/11/18 14:10 77 17 08/11/18 14:05 77 16 08/11/18 14:00 78 17 08/11/18 13:35 78 17 08/11/18 12:11 36.9 C 81 18 08/11/18 11:23 36.5 C 71 16 08/11/18 09:07 66 08/11/18 07:05 36.8 C 62 16 BP BP Pulse Ox 08/11/18 15:50 144/63 H 100 08/11/18 15:45 142/67 H 100 08/11/18 15:40 150/72 H 99 08/11/18 15:35 138/70 96 08/11/18 15:30 122/64 100 08/11/18 15:25 126/63 98 08/11/18 15:20 132/67 99 08/11/18 15:15 136/64 98 08/11/18 15:10 126/64 98 08/11/18 15:05 132/81 97 08/11/18 15:00 134/71 98 08/11/18 14:55 142/70 H 99 08/11/18 14:50 124/63 97 08/11/18 14:45 128/57 L 100 08/11/18 14:40 137/63 100 08/11/18 14:35 171/69 H 100 08/11/18 14:30 165/77 H 100 08/11/18 14:25 142/76 H 100 08/11/18 14:20 154/73 H 100 08/11/18 14:15 147/75 H 100 08/11/18 14:10 152/73 H 100 08/11/18 14:05 152/74 H 100 08/11/18 14:00 172/77 H 100 08/11/18 13:35 171/77 H 100 08/11/18 12:11 184/78 H 97 08/11/18 11:23 163/72 H 95 08/11/18 09:07 156/66 H 08/11/18 07:05 147/74 H 97 Laboratory Results BMP 08/11/18 08:58 Creatinine 1.28 H Diagnostic Findings Microbiology 08/10/18 09:27 Blood Aerobic Blood Culture - Preliminary No growth in Aerobic bottle after 24 hours. 08/10/18 09:27 Blood Anaerobic Blood Culture - Preliminary No growth in Anaerobic bottle after 24 hours. 08/10/18 09:14 Blood Aerobic Blood Culture - Preliminary No growth in Aerobic bottle after 24 hours. 08/10/18 09:14 Blood Anaerobic Blood Culture - Preliminary No growth in Anaerobic bottle after 24 hours. 08/05/18 17:03 Blood Aerobic Blood Culture - Final No growth in Aerobic bottle after 5 days. 08/05/18 17:03 Blood Anaerobic Blood Culture - Final No growth in Anaerobic bottle after 5 days. 08/05/18 17:29 Blood Aerobic Blood Culture - Final No growth in Aerobic bottle after 5 days. 08/05/18 17:29 Blood Anaerobic Blood Culture - Final No growth in Anaerobic bottle after 5 days.
--- NOTE | 2018-08-11 16:11 | Post Operative Brief Note ---
Immediate Post Op Note v1 Date of Surgery August 11, 2018 Pre & Post Diagnosis Operation Date: 08/08/18 11:00 <No data on this case meets the specified criteria> Operation Date: 08/11/18 12:00 Pre-Op Diagnosis: Chronic ulcer of great toe of right foot: Peripheral arterial disease Post-Op Diagnosis: Chronic ulcer of great toe of right foot: Peripheral arterial disease Procedure Operation Date: 08/08/18 11:00 <No data on this case meets the specified criteria> Operation Date: 08/11/18 12:00 Actual Procedures p Right Lower Extremity Angiogram, Ultrasound Localization of Left Femoral Artery, Mechanical Atherectomy of Right Superficial Femoral Artery, Percutaneous Transluminal Angioplasty of Right Superficial Femoral Artery and Right Popliteal Artery, Stenting of Right Superficial Femoral Artery, Mechanical Closure of Left Femoral Artery, Moderate Sedation 1400-(Left) - Jayro Billy MD Surgeon Walter Billy MD Software Packaging Engineer [place] Estimated Blood Loss 30 Findings Consistent with Post-Op Diagnosis Occluded SFA Distal SFA reconstitutes via collaterals Severe popliteal disease Severe tibial disease with 2 vessel runoff to the foot. 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 Successful STRUCTURAL MILL SUPERVISOR of popliteal
[2018-08-11] MEDS ORDERED: CLOPIDOGREL BISULFATE 300 MG TAB PO ONE (16:30)
[2018-08-11] MEDS: LISINOPRIL 40 MG TAB PO SCH (18:40)
--- NOTE | 2018-08-11 20:47 | Hospitalist Progress Note ---
Date of Service August 11, 2018 Assessment & Plan (1) Osteomyelitis of toe of right foot: right great toe. MRI confirmed. in setting of significant right leg PAD. remains on zosyn/daptomycin. defer final abx selection to ID. if IV abx recommended will need PICC. Present on Admission?: Yes (2) Chronic ulcer of great toe of right foot: IV abx as noted above. will discuss care plan with ID. needs DM shoes due to neuropathy. Present on Admission?: Yes (3) Peripheral arterial disease: s/p Mechanical Atherectomy of Right Superficial Femoral Artery, Percutaneous Transluminal Angioplasty of Right Superficial Femoral Artery and Right Popliteal Artery, Stenting of Right Superficial Femoral Artery. Plavix. If remains on daptomycin will need to hold statin. Appreciate Dr Billy assistance. Present on Admission?: Yes (4) Hypertension: Controlled. Cont current meds. Present on Admission?: Yes (5) CKD (chronic kidney disease), stage III: Borderline stage 4. Cr in am. Hydrate overnight due to dye used for a-gram today. Present on Admission?: Yes (6) DMII (diabetes mellitus, type 2): A1c 7.2 DMII diet Hold home glipizide control adequate at this time needs DM shoes (7) DVT prophylaxis: heparin SC family updated needs PT, OT young Subjective patient underwent arteriogram today by Dr Billy. see his op note. surgery was successful. had right-sided SFA stent placed. lives independently at home. multiple family at bedside. they inquire if she is fit to live alone still. DM x 30 years. Review of Systems Respiratory: no dyspnea Cardiovascular: no chest pain, no orthopnea and no paroxysmal nocturnal dyspnea Gastrointestinal: + constipation and + diarrhea/loose stools; no abdominal pain Physical Exam Constitutional: well developed and well nourished; no acute distress ENMT: external ear and nose normal, oropharynx normal Respiratory: normal respiratory effort, lungs clear to auscultation Cardiovascular: RRR, no murmur, no edema Heart Sounds: normal S1 and normal S2 Vessels: posterior tibial pulses present and dorsalis pedis pulses present Extremities: normal capillary refill Gastrointestinal (Abdomen): normal bowel sounds, soft, nontender, no he patosplenomegaly Skin: right great toe - medial aspect - ulceration with black eschar; no drainage, no odor Psychiatric: A+Ox3, euthymic affect Results & Data Vital Signs (Past 12 Hours) Vital Signs Temp Pulse Pulse Pulse Pulse Pulse Resp 08/11/18 20:26 37.3 C 90 16 08/11/18 19:25 36.9 C 95 H 16 08/11/18 18:25 36.9 C 89 20 08/11/18 17:54 95 H 17 08/11/18 17:25 87 18 08/11/18 17:10 86 17 08/11/18 16:55 36.5 C 84 16 08/11/18 16:40 36.6 C 87 16 08/11/18 16:25 36.5 C 90 18 08/11/18 16:10 72 18 08/11/18 16:05 97 H 18 08/11/18 16:00 91 H 14 08/11/18 15:55 93 H 12 08/11/18 15:50 90 16 08/11/18 15:45 93 H 16 08/11/18 15:40 91 H 16 08/11/18 15:35 90 18 08/11/18 15:30 91 H 18 08/11/18 15:25 91 H 18 08/11/18 15:20 92 H 18 08/11/18 15:15 95 H 18 08/11/18 15:10 98 H 18 08/11/18 15:05 105 H 18 08/11/18 15:00 98 H 18 08/11/18 14:55 96 H 14 08/11/18 14:50 97 H 13 08/11/18 14:45 98 H 13 08/11/18 14:40 75 14 08/11/18 14:35 75 14 08/11/18 14:30 77 16 08/11/18 14:25 83 14 08/11/18 14:20 80 16 08/11/18 14:15 80 16 08/11/18 14:10 77 17 08/11/18 14:05 77 16 08/11/18 14:00 78 17 08/11/18 13:35 78 17 08/11/18 12:11 36.9 C 81 18 08/11/18 11:23 36.5 C 71 16 08/11/18 09:07 66 BP BP Pulse Ox 08/11/18 20:26 172/78 H 94 08/11/18 19:25 167/67 H 94 08/11/18 18:25 152/73 H 96 05 17:54 163/88 H 96 08/11/18 17:25 170/77 H 95 05 17:10 169/71 H 95 05 16:55 150/68 H 98 08/11/18 16:40 136/70 97 08/11/18 16:25 137/74 95 08/11/18 16:10 96 08/11/18 16:05 144/72 H 98 08/11/18 16:00 131/64 100 05 15:55 140/71 100 08/11/18 15:50 144/63 H 100 08/11/18 15:45 142/67 H 100 08/11/18 15:40 150/72 H 99 08/11/18 15:35 138/70 96 08/11/18 15:30 122/64 100 08/11/18 15:25 126/63 98 08/11/18 15:20 132/67 99 08/11/18 15:15 136/64 98 08/11/18 15:10 126/64 98 08/11/18 15:05 132/81 97 08/11/18 15:00 134/71 98 08/11/18 14:55 142/70 H 99 08/11/18 14:50 124/63 97 08/11/18 14:45 128/57 L 100 08/11/18 14:40 137/63 100 08/11/18 14:35 171/69 H 100 08/11/18 14:30 165/77 H 100 08/11/18 14:25 142/76 H 100 08/11/18 14:20 154/73 H 100 05 14:15 147/75 H 100 05 14:10 152/73 H 100 05 14:05 152/74 H 100 05 14:00 172/77 H 100 05 13:35 171/77 H 100 05 12:11 184/78 H 97 05 11:23 163/72 H 95 05 09:07 156/66 H Laboratory Results cr 1.2 (1) 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 (3) DMII (diabetes mellitus, type 2) Diabetes mellitus buttermaker helper insulin use: with buttermaker helper use Diabetes mellitus complication status: with neurologic complications Diabetes mellitus complication detail: with unspecified neuropathy Qualified Code(s): E11.40 - Type 2 diabetes mellitus with diabetic neuropathy, unspecified; Z79.4 - intermediate (current) use of insulin
[2018-08-11] MEDS: HYDROCODONE/ACETAMOPHEN 5/325MG TAB PO PRN (22:04)
--- NOTE | 2018-08-11 22:46 | Operative Report ---
Post Operative Report Pre & Post Diagnosis Operation Date: 08/08/18 11:00 <No data on this case meets the specified criteria> Operation Date: 08/11/18 12:00 Pre-Op Diagnosis: Chronic ulcer of great toe of right foot: Peripheral arterial disease Post-Op Diagnosis: Chronic ulcer of great toe of right foot: Peripheral arterial disease Procedure Operation Date: 08/08/18 11:00 <No data on this case meets the specified criteria> Operation Date: 08/11/18 12:00 Actual Procedures p Right Lower Extremity Angiogram, Ultrasound Localization of Left Femoral Artery, Mechanical Atherectomy of Right Superficial Femoral Artery, Percutaneous Transluminal Angioplasty of Right Superficial Femoral Artery and Right Popliteal Artery, Stenting of Right Superficial Femoral Artery, Mechanical Closure of Left Femoral Artery, Moderate Sedation [id number](Left) - Jayro Billy MD Surgeon Walter Billy MD Make Up Operator Nemo Estimated Blood Loss 30 Findings Consistent with Post-Op Diagnosis Aorta: Calcified, No significant stenotic or aneurysmal disease. Right lower extremity: Common iliac - Minimal disease External iliac - Minimal disease Internal iliac -severe distal disease ROLL REPAIRER -20-30% disease Profunda - Minimal disease SFA -occluded at the ostium, partially reconstitutes in the mid segment with severe diffuse disease Popliteal- calcified, severe 80 to 90% diffuse disease TPT -mild disease AT -mid segment occlusion, reconstitutes distally and extends into dorsalis pedis artery PT -occluded proximally Peroneal - patent Left lower extremity: Common iliac - Minimal disease External iliac - Minimal disease Internal iliac -mild disease ROLL REPAIRER -mild disease Profunda -mild disease SFA -severe diffuse disease Specimens None Drains None Complications none Disposition Accompanied Patient To Recovery: No Disposition: PCU Description of Procedure Left common femoral access obtained under ultrasound guidance, short 5Fr sheath place Right lower extremity angiogram performed with RIM catheter Up and over with RIM catheter and glide advantage wire. 6 Fr 45 cm destination sheath placed to ROLL REPAIRER. Ostial SFA occlusion crossed with an angled glide catheter and glide advantage wire Intraluminal position in popliteal confirmed with injection through quick cross catheter [place] advantage wire exchanged for Viper wire Multiple passes at low and high-speed of CSI orbital atherectomy 1.5 classic crown from proximal to distal SFA Proximal to mid SFA dilated with 5 mm balloon Distal SFA/popliteal dilated with 4.0 mm balloon Residual stenosis at calcified mid segment stented with 5.0 x 100 mm Tigris stent 5 x 60 mm Tigris stent placed to ostium of SFA Stent postdilated with 5.0 balloon Post procedure good angiographic result, no evidence of dissection with two- vessel runoff to the foot Contrast used: 125 Access closure: Mynx Summary: 1. Right lower extremity with occluded SFA and ostium and diffuse mid to distal SFA/popliteal disease. Two-vessel runoff via anterior tibial, peroneal. 2. Left lower extremitypatent inflow, ROLL REPAIRER, severe diffuse SFA disease. 3. Successful STORE DETECTIVE/orbital atherectomy/Tigris stent placement x2 to right SFA 4. Successful STORE DETECTIVE with 4.0 balloon of distal SFA/popliteal Recommendations: Continue DAPT with ASA/Clopidogrel for 1 months Continue ASCVD risk factor modification Follow-up ultrasound in 1 month. I attest to the content of the Intraoperative Record and any orders documented therein. Any exceptions are noted below.
[2018-08-12] MEDS: PIPERACILLIN/TAZOBACTAM 3.375 GM in DEXTROSE 5% 100 ML IV SCH (02:17)
[2018-08-12] MEDS: SODIUM CHLORIDE 0.9% 1000ML 1,000 ML IV SCH (04:04)
[2018-08-12 05:10] LABS: Hematocrit (blood only) 30.2 % (37-47); Hemoglobin 10.2 g/dL (12.0-16.0); Mean Corpuscular Hgb Conc 33.8 g/dL (32-36); Mean Corpuscular Volume 88.3 fL (80-100); Mean Platelet Volume 9.2 fL (7.4-10.4); Platelet Count 239 K/uL (130-400); RDW Coefficient of Variation 12.9 % (11.5-14.5); RDW Standard Deviation 41.9 fL (36.4-46.3); Red Blood Count 3.42 M/uL (4.2-5.4); White Blood Count 7.29 K/uL (4.8-10.8)
[2018-08-12 05:44] LABS: BUN Creatinine Ratio 16.4 (10-20); Calcium 8.5 mg/dl (8.5-10.1); Creatinine Clr Calc Pharmacy 29.7 ml/min; Est GFR (African American) 47.2; Est GFR (Non-African American) 40.7; Magnesium 1.6 mg/dl (1.8-2.4)
[2018-08-12] MEDS ORDERED: MAGNESIUM SULFATE / D5W 1 GM/100 ML BAG IV SCH (07:45)
--- NOTE | 2018-08-12 08:55 | Cardiology Progress Note ---
Date of Service August 12, 2018 Assessment & Plan (1) Chronic ulcer of great toe of right foot: 2. Peripheral arterial disease 3. Type 2 DM 4. CKD Patient status post successful endovascular intervention to right SFA and popliteal arteries. Renal function stable. OK to discharge patient from c ardiology standpoint. Continue DAPT with ASA/clopidogrel for 1 month. Followup in our office in 1 month with ultrasound. Continue to follow with wound clinic. Subjective Lower extremity angiogram yesterday demonstrated occluded right SFA ostium with diffuse mid to distal SFA/popliteal disease, 2 vessel runoff via anterior tibial and peroneal. Left lower extremity with patent inflow, AUTOCLAVE OPERATOR and severe diffuse SFA disease. She underwent successful COLOR SEPARATION PHOTOGRAPHER, atherectomy and Trigis stent placement x2 to right SFA and successful COLOR SEPARATION PHOTOGRAPHER with balloon of distal SFA/popliteal. She reports improvement in her toe pain. Renal function improved. Review of Systems Review of Systems: All systems reviewed & are unremarkable except as noted in HPI & below Physical Exam Physical Exam: General: No acute distress, comfortable. HEENT: Head is normal. PERRLA. EOMI. Sclerae anicteric. Ears, nose and throat unremarkable. Mucous membranes moist. Neck: Normal carotid upstrokes, no bruits. No appreciable JVD. Lungs: Clear to auscultation bilaterally without rales, rhonchi or wheezes. Cardiac: Regular rate and rhythm. S1-S2 normal. No appreciable murmur, gallop or rub. Abdomen: Soft and nontender. Bowel sounds normal. No mass or organomegaly. No abdominal bruit. Extremities/vascular: --Well perfused. No peripheral edema. --Radial pulses 2+ bilaterally. DP/PT pulses nonpalpable on right. DP pulse diminished on left. --Sluggish cap refill --Ulceration of right medial great toe dressed and not examined today. Results & Data Vital Signs (Past 12 Hours) Vital Signs Temp Pulse Resp BP Pulse Ox 08/12/18 07:04 36.9 C 69 20 152/68 H 95 08/12/18 03:15 37.2 C 64 16 119/58 L 96 08/11/18 23:50 37.3 C 69 16 111/63 95 08/11/18 22:20 36.8 C 89 16 186/77 H 99 08/11/18 21:25 37.3 C 90 16 141/81 H 97 Laboratory Results Laboratory Results - last 24 hr 08/11/18 08/11/18 08/11/18 08:58 14:50 17:07 WBC RBC Hgb Hct MCV MCH MCHC RDW Std Deviation RDW Coeff of Tommy Plt Count MPV Activ Coag Time Kaolin 246 H Sodium Potassium Chloride Carbon Dioxide Anion Gap BUN Creatinine 1.28 H Est Cr Clr Drug Dosing 27.6 Est GFR ( Amer) 43.2 Est GFR (Non-Af Amer) 37.3 BUN/Creatinine Ratio Glucose POC Glucose 156 H Calcium Magnesium 08/11/18 08/12/18 08/12/18 20:57 04:55 04:55 WBC 7.29 RBC 3.42 L Hgb 10.2 L Hct 30.2 L MCV 88.3 MCH 29.8 MCHC 33.8 RDW Std Deviation 41.9 RDW Coeff of Otmmy 12.9 Plt Count 239 MPV 9.2 Activ Coag Time Kaolin Sodium 139 Potassium 4.0 Chloride 109 H Carbon Dioxide 26 Anion Gap 4.0 BUN 19 H Creatinine 1.19 Est Cr Clr Drug Dosing 29.7 Est GFR ( Amer) 47.2 Est GFR (Non-Af Amer) 40.7 BUN/Creatinine Ratio 16.4 Glucose 148 H POC Glucose 184 H Calcium 8.5 Magnesium 1.6 L 08/12/18 08:03 WBC RBC Hgb Hct MCV MCH MCHC RDW Std Deviation RDW Coeff of Tommy Plt Count MPV Activ Coag Time Kaolin Sodium Potassium Chloride Carbon Dioxide Anion Gap BUN Creatinine Est Cr Clr Drug Dosing Est GFR ( Amer) Est GFR (Non-Af Amer) BUN/Creatinine Ratio Glucose POC Glucose 159 H Calcium Magnesium (1) Chronic ulcer of great toe of right foot Non-pressure ulcer stage: with fat layer exposed Qualified Code(s): L97.512 - Non-pressure chronic ulcer of other part of right foot with fat layer exposed
[2018-08-12] MEDS: METOPROLOL TARTRATE 25 MG TAB PO SCH ×2 (09:13→20:54)
[2018-08-12] MEDS: CLOPIDOGREL BISULFATE 75 MG TAB PO SCH (09:14)
[2018-08-12] MEDS: INSULIN ASPART 100 UNITS/ML 3 ML PEN SC SCH ×4 (09:16→20:56)
[2018-08-12] MEDS: LISINOPRIL 40 MG TAB PO SCH (10:20)
[2018-08-12] MEDS: HEPARIN SOD 5,000 UNIT/0.5 ML VIAL SQ SCH ×2 (10:20→20:55)
[2018-08-12] MEDS: DAPTOmycin 200 MG in SYRINGE 0 ML IV SCH (10:23)
--- NOTE | 2018-08-12 22:19 | Hospitalist Progress Note ---
Date of Service August 12, 2018 Assessment & Plan (1) Osteomyelitis of toe of right foot: right great toe. MRI confirmed. in setting of significant right leg PAD. stop zosyn. change to IV daptomycin; plan 6 weeks of latter. PICC consent obtained; received PICC today. appreciate ID consultation and cardiology consultation. needs DM shoes after discharge. 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 needs DM shoes due to neuropathy. s/p PAD intervention this admission. (3) Peripheral arterial disease: s/p Mechanical Atherectomy of Right Superficial Femoral Artery, Percutaneous Transluminal Angioplasty of Right Superficial Femoral Artery and Right Popliteal Artery, Stenting of Right Superficial Femoral Artery. Plavix. Hold statin while on daptomycin. Check CPK in am. Appreciate Dr Billy assistance. (4) Hypertension: Controlled. Cont current meds. (5) CKD (chronic kidney disease), stage III: Borderline stage 4. Cr stable today. Stop IVF. (6) DMII (diabetes mellitus, type 2): A1c 7.2 DMII diet Hold home glipizide control adequate at this time needs DM shoes (7) DVT prophylaxis: heparin SC family updated at bedside today PT, OT evals completed - cleared for home with home health d/c tomorrow?? Subjective no issues overnight feels good eating well did very good w/ PT/OT --- rehab NOT recommended minimal right great toe pain we discussed PICC today - family present for that discussion Review of Systems Constitutional: + fatigue; no fever, no chills and no anorexia Respiratory: no dyspnea and no dyspnea on exertion Cardiovascular: no chest pain Gastrointestinal: + constipation; no abdominal pain, no nausea, no vomiting and no diarrhea/loose stools Physical Exam Constitutional: well developed and well nourished; no acute distress ENMT: external ear and nose normal, oropharynx normal Respiratory: normal respiratory effort, lungs clear to auscultation Cardiovascular: RRR, no murmur, no edema Heart Sounds: normal S1 and normal S2 Vessels: posterior tibial pulses present and dorsalis pedis pulses present Extremities: normal capillary refill Gastrointestinal (Abdomen): normal bowel sounds, soft, nontender, no hepatosplenomegaly Skin: minimal edema right foot; no cellulitis right great toe or dorsum of foot. dressing over right great toe not removed today. Psychiatric: A+Ox3, euthymic affect Results & Data Vital Signs (Past 12 Hours) Vital Signs Temp Pulse Resp BP Pulse Ox 08/12/18 20:52 70 162/67 H 08/12/18 14:56 37.2 C 70 17 147/69 H 97 Laboratory Results Laboratory Results - last 24 hr 08/12/18 08/12/18 08/12/18 04:55 04:55 08:03 WBC 7.29 RBC 3.42 L Hgb 10.2 L Hct 30.2 L MCV 88.3 MCH 29.8 MCHC 33.8 RDW Std Deviation 41.9 RDW Coeff of Tommy 12.9 Plt Count 239 MPV 9.2 Sodium 139 Potassium 4.0 Chloride 109 H Carbon Dioxide 26 Anion Gap 4.0 BUN 19 H Creatinine 1.19 Est Cr Clr Drug Dosing 29.7 Est GFR ( Amer) 47.2 Est GFR (Non-Af Amer) 40.7 BUN/Creatinine Ratio 16.4 Glucose 148 H POC Glucose 159 H Calcium 8.5 Magnesium 1.6 L 08/12/18 08/12/18 08/12/18 12:02 17:22 20:24 WBC RBC Hgb Hct MCV MCH MCHC RDW Std Deviation RDW Coeff of Tommy Plt Count MPV Sodium Potassium Chloride Carbon Dioxide Anion Gap BUN Creatinine Est Cr Clr Drug Dosing Est GFR ( Amer) Est GFR (Non-Af Amer) BUN/Creatinine Ratio Glucose POC Glucose 189 H 138 H 187 H Calcium Magnesium (1) DMII (diabetes mellitus, type 2) Diabetes mellitus complication detail: with unspecified neuropathy Diabetes mellitus complication status: with neurologic complications Diabetes mellitus bed bug exterminator insulin use: with longterm use Qualified Code(s): E11.40 - Type 2 diabetes mellitus with diabetic neuropathy, unspecified; Z79.4 - bed bug exterminator (current) use of insulin (2) Chronic ulcer of great toe of right foot Non-pressure ulcer stage: with fat layer exposed Qualified Code(s): L97.512 - Non-pressure chronic ulcer of other part of right foot with fat layer exposed (3) Hypertension Hypertension type: essential hypertension Qualified Code(s): I10 - Essential (primary) hypertension
[2018-08-13] MEDS: ACETAMINOPHEN 325 MG TAB PO PRN (00:04)
--- NOTE | 2018-08-13 04:15 | Infectious Disease Progress Nt ---
Date of Service August 12, 2018 Assessment & Plan (1) Osteomyelitis of toe of right foot: Patient with chronic right foot infection with osteomyelitis and cellulitis setting of severe arterial disease, now status post angiography and stenting. Hopefully this will improve blood flow and healing. Patient to continue on IV daptomycin, will likely require in the range of 6 therapy. Will follow. (2) Cellulitis of foot: Subjective Patient seen in follow-up for right foot infection. Now status post angiography, atherectomy, and stenting. Remains a febrile, offers no new complaints. Review of Systems Review of Systems: All systems reviewed & are unremarkable except as noted in HPI & below Physical Exam Constitutional: WD/WN, vitals as above comfortable; no acute distress Eyes: PERRL, conjunctivae normal, anicteric sclerae ENMT: external ear and nose normal, oropharynx normal Neck: trachea midline, no thyromegaly neck nontender Respiratory: normal respiratory effort, lungs clear to auscultation normal percussion; no respiratory distress and does not use accessory muscles Cardiovascular: Rate/Rhythm: regular rate and regular rhythm Heart Sounds: normal S1 and normal S2; no gallop, no murmur and no cardiac rub Vessels: no JVD Gastrointestinal (Abdomen): normal bowel sounds, soft, nontender, no hepatosplenomegaly Musculoskeletal: no cyanosis or clubbing, extremities motor strength 5/5 Spine: thoracic spine normal to inspection and lumbar spine normal to inspection; no cervical spinal tenderness Skin: no rashes, warm and dry normal turgor, + wound (Right great toe with surrounding erythema and induration) and + erythema (Right foot) Neurologic: patellar DTR's 2+ bilat, sensation intact moves all extremities and awake; no focal motor deficits Motor/Sensory: no sensory deficit Psychiatric: A+Ox3, euthymic affect Orientation: cooperative Lymphatic: no cervical or axillary lymphadenopathy no inguinal lymphadenopathy Results & Data Vital Signs (Past 12 Hours) Vital Signs Temp Pulse Pulse Resp BP Pulse Ox 08/13/18 00:47 37.1 C 172/72 H 08/13/18 00:00 38.0 C H 72 171/68 H 08/12/18 23:36 37.8 C H 71 15 182/75 H 95 08/12/18 20:52 70 162/67 H Laboratory Results Short CBC 08/12/18 Range/Units 04:55 WBC 7.29 (4.8-10.8) K/uL Hgb 10.2 L (12.0-16.0) g/dL Hct 30.2 L (37-47) % Plt Count 239 (130-400) K/uL BMP 08/12/18 04:55 Sodium 139 Potassium 4.0 Chloride 109 H Carbon Dioxide 26 BUN 19 H Creatinine 1.19 Glucose 148 H Calcium 8.5 Diagnostic Findings Microbiology 08/10/18 09:27 Blood Aerobic Blood Culture - Preliminary No growth in Aerobic bottle after 48 hours. 08/10/18 09:27 Blood Anaerobic Blood Culture - Preliminary No growth in Anaerobic bottle after 48 hours. 08/10/18 09:14 Blood Aerobic Blood Culture - Preliminary No growth in Aerobic bottle after 48 hours. 08/10/18 09:14 Blood Anaerobic Blood Culture - Preliminary No growth in Anaerobic bottle after 48 hours. 08/05/18 17:03 Blood Aerobic Blood Culture - Final No growth in Aerobic bottle after 5 days. 08/05/18 17:03 Blood Anaerobic Blood Culture - Final No growth in Anaerobic bottle after 5 days. 08/05/18 17:29 Blood Aerobic Blood Culture - Final No growth in Aerobic bottle after 5 days. 08/05/18 17:29 Blood Anaerobic Blood Culture - Final No growth in Anaerobic bottle after 5 days.
[2018-08-13 07:20] LABS: BUN Creatinine Ratio 17.5 (10-20); Calcium 9.1 mg/dl (8.5-10.1); Creatinine Clr Calc Pharmacy 34.7 ml/min; Est GFR (African American) 56.9; Est GFR (Non-African American) 49.1; Magnesium 1.7 mg/dl (1.8-2.4); Potassium 3.8 mmol/L (3.5-5.1)
[2018-08-13] MEDS: METOPROLOL TARTRATE 25 MG TAB PO SCH ×2 (09:33→21:49)
[2018-08-13] MEDS: LISINOPRIL 40 MG TAB PO SCH (09:34)
[2018-08-13] MEDS: CLOPIDOGREL BISULFATE 75 MG TAB PO SCH (09:34)
[2018-08-13] MEDS: HEPARIN SOD 5,000 UNIT/0.5 ML VIAL SQ SCH ×2 (09:35→21:47)
--- NOTE | 2018-08-13 09:35 | Pharmacy Report ---
Pharmacy Abx Dose Short Note - Date of Service August 13, 2018 - Assessment & Plan Assessment 88 year old F receiving DAPTOMYCIN for treatment of BONE/JOINT INFECTION Day # 4 of antimicrobial therapy with Dapto. Pt received Zosyn x 5 days but was dc 08/12. Plan Daptomycin * Pt currently ordered ~3-4 mg/kg for skin/soft tissue infection * Osteo confirmed - will increase dosing to 6mg/kg for bone/joint infection * Will dose based on IBW as BMI <35 * Q24hr dosing interval for crcl >30 ml/min Pharmacy will continue to follow and will adjust dose/frequency as necessary. Thank you.
[2018-08-13] MEDS: INSULIN ASPART 100 UNITS/ML 3 ML PEN SC SCH ×4 (09:41→21:41)
[2018-08-13] MEDS: DAPTOmycin 325 MG in SYRINGE 0 ML IV SCH (10:09)
[2018-08-13] MEDS ORDERED: MAGNESIUM SULFATE / D5W 1 GM/100 ML BAG IV ONE (10:45)
[2018-08-13] MEDS: POLYETHYLENE (MIRALAX) 17 GM PACK PO SCH (11:03)
--- NOTE | 2018-08-13 12:42 | Cardiology Progress Note ---
Date of Service August 13, 2018 Assessment & Plan (1) Chronic ulcer of great toe of right foot: 2. Peripheral arterial disease 3. Type 2 DM 4. CKD Patient status post successful endovascular intervention to right SFA and popliteal arteries. Renal function remains stable. PICC line placed yesterday. OK to discharge from cardiology standpoint. Will followup in 1 month with ultrasound. Continue DAPT with ASA/clopidogrel for 1 month. Supervising Physician Co-Signing Physician Notes Patient seen and examined. Agree with assessment and plan as outlined by Nadia Richard. Feeling well. Foot well perfused. No access site complications. OK for discharge on DAPT with cardiology follow-up Subjective Patient reports improvement in right foot pain. Got PICC line yesterday and plans to be discharged today on IV antibiotics per infectious disease. Review of Systems Review of Systems: All systems reviewed & are unremarkable except as noted in HPI & below Physical Exam Physical Exam: General: No acute distress, comfortable. HEENT: Head is normal. PERRLA. EOMI. Sclerae anicteric. Ears, nose and throat unremarkable. Mucous membranes moist. Neck: Normal carotid upstrokes, no bruits. No appreciable JVD. Lungs: Clear to auscultation bilaterally without rales, rhonchi or wheezes. Cardiac: Regular rate and rhythm. S1-S2 normal. No appreciable murmur, gallop or rub. Abdomen: Soft and nontender. Bowel sounds normal. No mass or organomegaly. No abdominal bruit. Extremities/vascular: --Well perfused. No peripheral edema. --Radial pulses 2+ bilaterally. DP/PT pulses nonpalpable on right. DP pulse diminished on left. --Sluggish cap refill --Ulceration of right medial great toe dressed and not examined today. Results & Data Vital Signs (Past 12 Hours) Vital Signs Temp Pulse Resp BP Pulse Ox 08/13/18 07:06 36.8 C 63 18 154/75 H 96 08/13/18 00:47 37.1 C 172/72 H Laboratory Results Laboratory Results - last 24 hr 08/12/18 08/12/18 08/12/18 12:02 17:22 20:24 ESR Sodium Potassium Chloride Carbon Dioxide Anion Gap BUN Creatinine Est Cr Clr Drug Dosing Est GFR ( Amer) Est GFR (Non-Af Amer) BUN/Creatinine Ratio Glucose POC Glucose 189 H 138 H 187 H Calcium Magnesium Total Creatine Kinase 08/13/18 08/13/18 08/13/18 06:14 06:14 08:06 ESR 80 H Sodium 143 Potassium 3.8 Chloride 111 H Carbon Dioxide 25 Anion Gap 7.0 BUN 18 Creatinine 1.02 Est Cr Clr Drug Dosing 34.7 Est GFR ( Amer) 56.9 Est GFR (Non-Af Amer) 49.1 BUN/Creatinine Ratio 17.5 Glucose 134 H POC Glucose 127 H Calcium 9.1 Magnesium 1.7 L Total Creatine Kinase 64 08/13/18 12:04 ESR Sodium Potassium Chloride Carbon Dioxide Anion Gap BUN Creatinine Est Cr Clr Drug Dosing Est GFR ( Amer) Est GFR (Non-Af Amer) BUN/Creatinine Ratio Glucose POC Glucose 241 H Calcium Magnesium Total Creatine Kinase (1) Chronic ulcer of great toe of right foot Non-pressure ulcer stage: with fat layer exposed Qualified Code(s): L97.512 - Non-pressure chronic ulcer of other part of right foot with fat layer exposed
--- NOTE | 2018-08-13 14:44 | Infectious Disease Progress Nt ---
Date of Service August 13, 2018 Assessment & Plan (1) Osteomyelitis of toe of right foot: Patient with chronic right foot infection with osteomyelitis and cellulitis setting of severe arterial disease, now status post angiography and stenting. Hopefully this will improve blood flow and healing. Patient to continue on IV daptomycin, will likely require in the range of 6 therapy. Will follow. Subjective Patient reports improvement in right foot pain. Got PICC line yesterday and plans to be discharged today on IV antibiotics per infectious disease. Review of Systems Review of Systems: All systems reviewed & are unremarkable except as noted in HPI & below Physical Exam Constitutional: WD/WN, vitals as above comfortable; no acute distress Eyes: PERRL, conjunctivae normal, anicteric sclerae ENMT: external ear and nose normal, oropharynx normal Neck: trachea midline, no thyromegaly neck nontender Respiratory: normal respiratory effort, lungs clear to auscultation normal percussion; no respiratory distress and does not use accessory muscles Cardiovascular: Rate/Rhythm: regular rate and regular rhythm Heart Sounds: normal S1 and normal S2; no gallop, no murmur and no cardiac rub Vessels: no JVD Gastrointestinal (Abdomen): normal bowel sounds, soft, nontender, no hepatosplenomegaly Musculoskeletal: no cyanosis or clubbing, extremities motor strength 5/5 Spine: thoracic spine normal to inspection and lumbar spine normal to inspection; no cervical spinal tenderness Skin: no rashes, warm and dry normal turgor, + wound (Right great toe with surrounding erythema and induration) and + erythema (Right foot) Neurologic: patellar DTR's 2+ bilat, sensation intact moves all extremities and awake; no focal motor deficits Motor/Sensory: no sensory deficit Psychiatric: A+Ox3, euthymic affect Orientation: cooperative Lymphatic: no cervical or axillary lymphadenopathy no inguinal lymphadenopathy Results & Data Vital Signs (Past 12 Hours) Vital Signs Temp Pulse Resp BP Pulse Ox 08/13/18 07:06 36.8 C 63 18 154/75 H 96 Laboratory Results BMP 08/13/18 06:14 Sodium 143 Potassium 3.8 Chloride 111 H Carbon Dioxide 25 BUN 18 Creatinine 1.02 Glucose 134 H Calcium 9.1 Cardiac Enzymes 08/13/18 Range/Units 06:14 Total Creatine Kinase 64 (26-192) U/L Diagnostic Findings Microbiology 08/10/18 09:27 Blood Aerobic Blood Culture - Preliminary No growth in Aerobic bottle after 48 hours. 08/10/18 09:27 Blood Anaerobic Blood Culture - Preliminary No growth in Anaerobic bottle after 48 hours. 08/10/18 09:14 Blood Aerobic Blood Culture - Preliminary No growth in Aerobic bottle after 48 hours. 08/10/18 09:14 Blood Anaerobic Blood Culture - Preliminary No growth in Anaerobic bottle after 48 hours. 08/05/18 17:03 Blood Aerobic Blood Culture - Final No growth in Aerobic bottle after 5 days. 08/05/18 17:03 Blood Anaerobic Blood Culture - Final No growth in Anaerobic bottle after 5 days. 08/05/18 17:29 Blood Aerobic Blood Culture - Final No growth in Aerobic bottle after 5 days. 08/05/18 17:29 Blood Anaerobic Blood Culture - Final No growth in Anaerobic bottle after 5 days.
--- NOTE | 2018-08-13 21:03 | Hospitalist Progress Note ---
Date of Service August 13, 2018 Assessment & Plan (1) Osteomyelitis of toe of right foot: right great toe. MRI confirmed. in setting of significant right leg PAD. plan - IV daptomycin x [address] weeks[address]UE PICC in place. will need weekly labs while on daptomycin. HOLD statin. Spoke with ID - w/ respect to low-grade temp -- no change in antibiotics at this time. Will observe overnight for additional temps. No new source of infection by history or on exam. Patient looks great. appreciate ID consultation and cardiology consultation. needs DM shoes after discharge. 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 needs DM shoes due to neuropathy. s/p PAD intervention this admission. (3) Peripheral arterial disease: s/p Mechanical Atherectomy of Right Superficial Femoral Artery, Perc utaneous Transluminal Angioplasty of Right Superficial Femoral Artery and Right Popliteal Artery, Stenting of Right Superficial Femoral Artery. Plavix x 30 days. Hold statin while on daptomycin. CPK normal today. Appreciate Dr Billy assistance. (4) Hypertension: Controlled. Cont current meds. (5) CKD (chronic kidney disease), stage III: Borderline stage 4. Cr stable again today. (6) DMII (diabetes mellitus, type 2): A1c 7.2 DMII diet Hold home glipizide control adequate at this time needs DM shoes resume lantus. (7) DVT prophylaxis: heparin SC family updated at bedside today extensively PT, OT evals completed - cleared for home with home health d/c tomorrow if no temps overnight Subjective low grade temp overnight - 38 degrees. transient - resolved <60 minutes w/o intervention. she was not aware of temp. feels good. eating well. ambulating well. thinks right great toe "looks and feels better." NUMEROUS family members w/ questions today. PICC placed and IV abx set up for home. Review of Systems Constitutional: no fatigue and no anorexia Respiratory: no cough and no dyspnea Cardiovascular: no chest pain Gastrointestinal: no abdominal pain, no nausea, no vomiting and no diarrhea/loose stools Genitourinary: no dysuria Physical Exam Constitutional: well developed and well nourished; no acute distress ENMT: external ear and nose normal, oropharynx normal Respiratory: normal respiratory effort, lungs clear to auscultation Cardiovascular: RRR, no murmur, no edema Heart Sounds: normal S1 and normal S2 Vessels: posterior tibial pulses present and dorsalis pedis pulses present Extremities: normal capillary refill Gastrointestinal (Abdomen): normal bowel sounds, soft, nontender, no hepatosplenomegaly Skin: right great toe -- ulcer medial aspect with eschar, slightly more discharge today than previous; mild erythema surrounding toe; mild edema of toe and dorsum of foot; no change from prior exams Psychiatric: A+Ox3, euthymic affect Results & Data Vital Signs (Past 12 Hours) Vital Signs Temp Pulse Pulse Resp BP Pulse Ox 08/13/18 16:58 37.1 C 73 16 167/79 H 96 08/13/18 16:21 36.8 C 63 71 18 154/75 H 96 Laboratory Results Laboratory Results - last 24 hr 08/13/18 08/13/18 08/13/18 06:14 06:14 08:06 ESR 80 H Sodium 143 Potassium 3.8 Chloride 111 H Carbon Dioxide 25 Anion Gap 7.0 BUN 18 Creatinine 1.02 Est Cr Clr Drug Dosing 34.7 Est GFR ( Amer) 56.9 Est GFR (Non-Af Amer) 49.1 BUN/Creatinine Ratio 17.5 Glucose 134 H POC Glucose 127 H Calcium 9.1 Magnesium 1.7 L Total Creatine Kinase 64 08/13/18 08/13/18 08/13/18 12:04 17:01 20:48 ESR Sodium Potassium Chloride Carbon Dioxide Anion Gap BUN Creatinine Est Cr Clr Drug Dosing Est GFR ( Amer) Est GFR (Non-Af Amer) BUN/Creatinine Ratio Glucose POC Glucose 241 H 168 H 249 H Calcium Magnesium Total Creatine Kinase (1) DMII (diabetes mellitus, type 2) Diabetes mellitus complication detail: with unspecified neuropathy Diabetes mellitus complication status: with neurologic complications Diabetes mellitus [employer] insulin use: with [employer] use Qualified Code(s): E11.40 - Type 2 diabetes mellitus with diabetic neuropathy, unspecified; Z79.4 - [employer] (current) use of insulin (2) Chronic ulcer of great toe of right foot Non-pressure ulcer stage: with fat layer exposed Qualified Code(s): L97.512 - Non-pressure chronic ulcer of other part of right foot with fat layer exposed (3) Hypertension Hypertension type: essential hypertension Qualified Code(s): I10 - Essential (primary) hypertension
[2018-08-13] MEDS ORDERED: INSULIN GLARGINE SOLOSTAR 100 UNITS/ML 3 ML PEN SC SCH (21:05)
[2018-08-14 06:50] LABS: Est GFR (African American) 53.7; Est GFR (Non-African American) 46.3
[2018-08-14] MEDS: CLOPIDOGREL BISULFATE 75 MG TAB PO SCH (09:20)
[2018-08-14] MEDS: LISINOPRIL 40 MG TAB PO SCH (09:20)
[2018-08-14] MEDS: METOPROLOL TARTRATE 25 MG TAB PO SCH (09:20)
[2018-08-14] MEDS: POLYETHYLENE (MIRALAX) 17 GM PACK PO SCH (09:22)
[2018-08-14] MEDS: INSULIN ASPART 100 UNITS/ML 3 ML PEN SC SCH (09:30)
[2018-08-14] MEDS: HEPARIN SOD 5,000 UNIT/0.5 ML VIAL SQ SCH (09:30)
[2018-08-14] MEDS: DAPTOmycin 325 MG in SYRINGE 0 ML IV SCH (10:46)
--- NOTE | 2018-08-24 12:59 | Discharge Summary ---
Date of Service date of admission - August 05, 2018 date of discharge - August 14, 2018 Admission HPI Per Admitting Provider Mrs. Elliott is an 88-year-old female with a medical history significant for chronic kidney disease, hypertension, dyslipidemia, type 2 diabetes mellitus, peripheral arterial disease and right lower extremity ulcerations. On 08/01 she was seen at the wound clinic with worsening of her right great toe wound along with worsening toe pain. She was referred to [facility] ED where she was initiated on IV antibiotics with Cherri per Dr. Gonsales. Yesterday she was seen at the wound clinic again with evidence of worsening infection and was referred to [facility] for admission. Patient reports the pain in her toe started about one week ago. Typically no pain in her foot. No claudication symptoms. She had worsening erythema and edema of the foot over the past several days. Daughter feels redness improved today compared to yesterday. No fever, chills or sweats. No chest pain or shortness of breath. Patient has history of recurrent ulcerations of both lower extremities. In 2015 Dr. Mando Wilson performed angiogram which showed severe disease bilaterally including right SFA 100% occlusion and left SFA long severe disease extending into the popliteal artery and poor outflow. No intervention was performed at that time. Principal Diagnosis right great toe osteomyelitis Discharge Exam Constitutional well developed and well nourished; no acute distress ENMT external ear and nose normal, oropharynx normal Respiratory normal respiratory effort, lungs clear to auscultation Cardiovascular RRR, no murmur, no edema Heart Sounds: normal S1 and normal S2 Vessels: posterior tibial pulses present and dorsalis pedis pulses present Extremities: normal capillary refill Gastrointestinal (Abdomen) normal bowel sounds, soft, nontender, no hepatosplenomegaly Musculoskeletal right great toe - ulceration on medial aspect, bone cannot be seen; mild surrounding erythema and edema; no cellulitis of dorsum of right foot; other toes are normal. Skin right arm PICC clean, dry, no drainage. Psychiatric A+Ox3, euthymic affect Discharge Data Allergies Allergy/AdvReac Type Severity Reaction Status Date / Time No Known Allergies Allergy Verified 08/22/18 09:43 Consultations 1. [facility] ID 2. [facility] - Walter Billy MD 3. Orthopedics - [facility] (Aaron El MD) 4. PT, OT Procedures Performed Operation Date: 08/11/18 12:00 Actual Procedures Right Lower Extremity Angiogram, Ultrasound Localization of Left Femoral Artery, Mechanical Atherectomy of Right Superficial Femoral Artery, Percutaneous Transluminal Angioplasty of Right Superficial Femoral Artery and Right Popliteal Artery, Stenting of Right Superficial Femoral Artery, Mechanical Closure of Left Femoral Artery, Moderate Sedation - Walter Billy MD Ordered Studies 1. MRI right foot - IMPRESSION: 1. Findings highly suspicious for osteomyelitis of the distal phalanx of the first toe significantly progressed from prior exam. No rick evidence of septic arthritis of the interphalangeal joint of the first toe at this time, although heterogeneous signal intensity of the head of the proximal phalanx could raise concern for early osteomyelitis or alternatively sterile reactive change. 2. Soft tissue ulceration along the medial aspect of the first toe. 2. RLE arterial duplex study - IMPRESSION: 1. Near nondiagnostic study due to extensive vessel wall calcification. 2. High-grade stenosis of the proximal superficial femoral artery. 3. Multifocal occlusion versus incomplete visibility of the vessels of the remainder of the leg due to extensive vascular calcification. 3. PICC line - right arm Hospital Course (1) Osteomyelitis of toe of right foot: Right great toe - MRI confirmed. In setting of significant right leg PAD. Seen in consult by orthopedics, ID, cardiology. Orthopedics recommended conservative, medial management rather than debridement and/or amputation. ID recommended PICC line placement and 6 weeks of IV daptomycin. Previous cultures of right great toe have grown MSSA. RUE PICC line was placed. She will need weekly labs while on daptomycin (cbc, sed rate, etc). HOLD statin while on IV daptomycin. Blood cultures were negative during the stay. See discussion below in "PAD" regarding arterial intervention performed by Dr Walter Billy. In addition to the above the patient needs DM shoes after discharge. She has some element of neuropathy from long-standing T2DM. Home health has been arranged to assist with IV antibiotics. She will follow-up in the [facility] and with orthopedics. Hopefully with intervention of the arterial circulation of the RLE this infection can resolve with IV antibiotics alone. (2) Chronic ulcer of great toe of right foot: IV antibiotics as noted above. Needs DM shoes due to neuropathy. s/p PAD intervention this admission. (3) Peripheral arterial disease: s/p Mechanical Atherectomy of Right Superficial Femoral Artery, Percut aneous Transluminal Angioplasty of Right Superficial Femoral Artery and Right Popliteal Artery, Stenting of Right Superficial Femoral Artery. All done by Dr Walter Billy. Excellent pulses and cap refill in the right foot following this intervention. Plavix x 30 days then can discontinue. Remain on aspirin indefinitely. Hold statin while on daptomycin. CPK normal prior to discharge. (4) Hypertension: Controlled. Cont current meds. (5) CKD (chronic kidney disease), stage III: Borderline stage 4. Cr stable during the stay. Discharge Cr was 1. (6) DMII (diabetes mellitus, type 2): A1c 7.2%. DMII diet. Hold glipizide at time of discharge but continue lantus as previous. Needs DM shoes. Total Time Total Time Spent Total Time Spent (In Minutes): 60 Total Time Includes: Examination of the Patient, Discharge Planning, Medication Reconciliation and Communication With Other Providers Discharge Plan Discharge Items Patient Disposition: Home - Home Health Services Reason For Visit: DIABETIC FOOT ULCER, R FOOT CELLULITIS Discharge Diagnosis: right great toe ulcer with osteomyelitis (bone infection) of same toe Discharge Goals: Decrease discomfort, Diagnostic testing and Improve disease control Activity: As commented below Activity Comment: please use surgical shoe on right foot with all weight- bearing/walking Bathing Comment: ok to shower but no tub baths; keep right foot covered/dry during showers Weightbearing Comment: use surgical shoe on right foot with walking Non-emergency contact: Primary Care Provider, Surgeon and Specialist Call non-emergency contact if: you have any medication questions, your pain is not controlled, your pain is worsening, your temperature is above 100.5, your wound has increased redness, your wound has increased drainage and your wound pain has increased Follow-up/Referrals: [facility] [Provider Group] (Please, follow up at [facility]. *The clinic is located at [address] [address] in [place]. The phone number is [phone].) Brant Leal MD [Primary Care Provider] - 08/19/18 4:10 pm (Please, follow up with Dr. Leal on SaturdayAugust 19 at 4:10 pm. *If you need to change this appointment, call the office at [phone].) José Miguel Vaughn, DO [Surgeon] - (see Dr Vaughn - [facility] - 1 week if possible for recheck of right great toe) Diet: Carb Consistent or DM2 Addtl Provider Instructions: from Mando Richards - hospitalist- You were treated for right great toe infection. The infection is also in the bone of the first toe. You were seen by various providers including orthopedics, wound care, infectious disease, and cardiology. You underwent a procedure by Dr Billy of the right leg to improve your blood flow through the arteries in the leg. Infectious disease and orthopedics recommend a 6-week course of IV antibiotic in the hopes of avoiding any surgery of the toe. At this time we recommend - 1. aspirin 81mg once daily. 2. clopidogrel (plavix) 75mg once daily for 30 days then STOP. New prescription given. This is for your stent in the right leg. 3. IV antibiotics for 6 weeks via your PICC line. 4. hydrocodone-acetaminophen pain medication -- 1 tab every 6 hours for pain as needed. This medication may make you drowsy -- use with caution. It will also cause constipation; thus, you will likely need to take [id number] miralax once a day to keep your bowels going. 5. take probiotics (lactinex) twice a day for prevention of diarrhea from your antibiotic. New prescription given. 6. take pantoprazole 40mg every morning for 1 month to prevent stomach irritation while you are on aspirin/plavix for your stent. 7. I would stop your glipizide at this time. It can always be resumed if your sugars are running high (consistently over 150). Continue your lantus as previous. 8. Use your surgical shoe on the right foot when you walk. It is best to use your walker when walking as well. 9. STOP your cholesterol medication, pravastatin. It is contraindicated while you are on the IV antibiotic. It can be started again in about 6-8 weeks. 10. continue to check your blood sugars at least twice a day (morning and night-time; OR - morning and before evening meal -- your choice). Again hold your glipizide. If your sugars run consistently greater than 150 over the next few days then it would be reasonable to restart this medication. Follow-up - see separate section. You will also be having home health services. Return to [facility] if -- * you see worsening redness, drainage, odor, swelling, etc from the right great toe * you have worsening pain of the right great toe * you have persistent fevers over 100.5 degrees * you have severe diarrhea * any other concerns Best wishes and feel better, Dr Richards Prescriptions: New hydrocodone-acetaminophen [Maynard] 5-325 mg Tablet 1 tab PO Q6H PRN (Reason: pain) Qty: 20 RF: 0 clopidogrel 75 mg Tablet 75 mg PO QAM Qty: 30 RF: 0 daptomycin 350 mg recon soln 200 mg IV DAILY Qty: 10 RF: 0 Lactinex 1 million cell tablet,chewable 2 tab PO BID Qty: 120 RF: 1 aspirin 81 mg tablet,delayed release (DR/EC) 81 mg PO DAILY Qty: 30 RF: 2 pantoprazole [Protonix] 40 mg tablet,delayed release (DR/EC) 40 mg PO DAILY Qty: 30 RF: 1 Continued metolazone 5 mg Tablet 5 mg PO Q OTHER DAY RF: 0 amlodipine 5 mg Tablet 5 mg PO BID RF: 0 lisinopril 40 mg Tablet 40 mg PO DAILY RF: 0 metoprolol tartrate 25 mg Tablet 25 mg PO BID RF: 0 Lantus Solostar U-100 Insulin 100 unit/mL (3 mL) Insulin Pen 15 units subcut PM RF: 0 Discontinued glipizide 10 mg Tablet 10 mg PO BID RF: 0 pravastatin 40 mg Tablet 40 mg PO DAILY RF: 0 Stand-Alone Forms: [facility], Opio[facility] Pain Management [employer]/Other Patient Handouts: DVT Prevent Discharge Orders: Discharge Order (Routine); Ordered 08/14/18 Ordered By: Mando Richards Admission Data Admit Date/Time: 08/05/18 13:09 Attending Provider: Mando Richards Admit Provider: Damaris Davis Primary Care Provider: Brant Leal Other Providers: Jorje Gonsales ; Claudio Wilson ; Jayro Billy Service: Medical Other Interventions: Discharge Summary Assessment (RN) Last Done: 08/14/18 10:13 Pending Studies at Discharge: No DC Date/Time DO NOT enter until pt leaves facility: 08/14/18 13:59
== END 2018-08-14 13:59 | disposition home health service (06) | DRG 629 ==
LOC: 3W 13:09 → SUATTDRO 13:09